=== PATIENT | female | born 1970 | race African-American/Black ===

== ENCOUNTER → 2020-11-19 | Outpatient (CLI) | payer OTHER ==
[2020-11-19 09:06] LABS: Basophils # (auto) 0 10 ^3/uL (0-0.2); Basophils % (auto) 0.9 % (0.0-2.0); Eosinophils # (auto) 0.1 10 ^3/uL (0-0.8); Eosinophils % (auto) 1.9 % (0.0-7.0); Hematocrit 38.8 % (36.0-46.0); Hemoglobin 13.3 g/dL (12.2-16.2); Lymphocytes # (auto) 1.5 10 ^3/uL (0.4-5.4); Lymphocytes % (auto) 34.8 % (10.0-50.0); Mean Corpuscular Hgb Conc. 34.2 g/dL (32.0-36.0); Mean Corpuscular Volume 93.6 fL (80.0-100.0); Monocytes # (auto) 0.3 10 ^3/uL (0-1.3); Monocytes % (auto) 7.6 % (0.0-12.0); Neutrophils # (auto) 2.3 10 ^3/uL (1.6-8.6); Neutrophils % (auto) 54.8 % (37.0-80.0); Nucleated Red Blood Cells % 0.2 %; Platelet Count (auto) 266 10^3/uL (140-450); Red Blood Cells 4.15 10^6/uL (4.0-5.20); Red Cell Distribution Width 14.2 % (11.8-14.3); White Blood Cell 4.2 10^3/uL (4.4-10.8)
[2020-11-19 09:11] LABS: Urine Bacteria NONE SEEN /hpf (None Seen); Urine Blood Negative /uL (Negative); Urine Specific Gravity 1.013 (1.001-1.035); Urine WBC <1 /hpf (0 - 5)
[2020-11-19 10:03] LABS: Albumin 3.8 g/dL (3.4-5.0); Calcium 9.7 mg/dL (8.5-10.1); Potassium 3.4 mmol/L (3.5-5.1)
[2020-11-19 11:55] LABS: BUN/Creatinine Ratio 12.9; Bilirubin, Total 0.6 mg/dL (0.2-1.0); Total Protein 7.5 g/dL (6.4-8.2)
== END | disposition home or self-care (01) ==
LOC: LAB 08:34
PROVIDERS: ATTEND Internal Medicine
DX: I10 Essential (primary) hypertension (principal)
CPT/HCPCS: 36415; 80053; 80061; 81001; 82306; 83036; 84443; 85025

== ENCOUNTER → 2021-01-08 | Outpatient (CLI) | payer OTHER ==
[2021-01-08 12:27] LABS: Potassium 3.9 mmol/L (3.5-5.1)
[2021-01-08 12:29] LABS: BUN/Creatinine Ratio 15.8
== END | disposition home or self-care (01) ==
LOC: LAB 11:17
PROVIDERS: ATTEND Internal Medicine
DX: I10 Essential (primary) hypertension (principal)
CPT/HCPCS: 36415; 80048

== ENCOUNTER → 2021-03-13 | Outpatient (CLI) | payer OTHER ==
[2021-03-13 16:27] LABS: Albumin 3.8 g/dL (3.4-5.0); Calcium 8.7 mg/dL (8.5-10.1); Potassium 3.6 mmol/L (3.5-5.1)
[2021-03-13 16:30] LABS: BUN/Creatinine Ratio 15.4; Bilirubin, Total 0.6 mg/dL (0.2-1.0); Total Protein 7.4 g/dL (6.4-8.2)
== END | disposition home or self-care (01) ==
LOC: LAB 14:01
PROVIDERS: ATTEND Internal Medicine
DX: I10 Essential (primary) hypertension (principal)
CPT/HCPCS: 36415; 80053

== ENCOUNTER → 2021-03-25 | Outpatient (CLI) | payer OTHER ==
[2021-03-25 09:18] LABS: Urine Bacteria NONE SEEN /hpf (None Seen); Urine Blood Negative /uL (Negative); Urine Specific Gravity 1.014 (1.001-1.035); Urine WBC <1 /hpf (0 - 5)
== END | disposition home or self-care (01) ==
LOC: LAB 08:55
PROVIDERS: ATTEND Internal Medicine
DX: N39.0 Urinary tract infection, site not specified (principal)
CPT/HCPCS: 81001

== ENCOUNTER 2021-09-17 15:41 | Emergency (ER) | payer OTHER ==
[~2021-09-17] VITALS: Ht 170.2 cm; Wt 77.1 kg
[2021-09-17] MEDS ORDERED: ASPirin 81 mg TAB PO ONE (16:15)
[2021-09-17] MEDS ORDERED: SODIUM CHLORIDE 0.9% 1,000 ML IV ONE (16:15)
[2021-09-17 16:39] LABS: Urine Bacteria NONE SEEN /hpf (None Seen); Urine Blood Negative /uL (Negative); Urine Hyaline Cast FEW /lpf (0 - 2); Urine Specific Gravity 1.018 (1.001-1.035); Urine WBC 2 /hpf (0 - 5)
[2021-09-17 16:46] LABS: Amphetamine Screen, Urine NEGATIVE (NEGATIVE); Barbiturate Scree,Urine NEGATIVE (NEGATIVE); Benzodiazephine Screen, Urine NEGATIVE (NEGATIVE); Cannabinoid Screen, Urine NEGATIVE (NEGATIVE); Cocaine Screen, Urine NEGATIVE (NEGATIVE); Opiate Scree,Urine POSITIVE (NEGATIVE); Phencyclidine Screen, Urine NEGATIVE (NEGATIVE)
[2021-09-17 17:00] LABS: Basophils # (auto) 0.1 10 ^3/uL (0-0.2); Basophils % (auto) 2.1 % (0.0-2.0); Eosinophils # (auto) 0.1 10 ^3/uL (0-0.8); Eosinophils % (auto) 2.6 % (0.0-7.0); Hematocrit 42.8 % (36.0-46.0); Hemoglobin 14.3 g/dL (12.2-16.2); Lymphocytes # (auto) 1.4 10 ^3/uL (0.4-5.4); Lymphocytes % (auto) 32.1 % (10.0-50.0); Mean Corpuscular Hemoglobin 30.8 pg (28.0-32.0); Mean Corpuscular Hgb Conc. 33.4 g/dL (32.0-36.0); Monocytes # (auto) 0.4 10 ^3/uL (0-1.3); Monocytes % (auto) 9.7 % (0.0-12.0); Neutrophils # (auto) 2.3 10 ^3/uL (1.6-8.6); Neutrophils % (auto) 53.5 % (37.0-80.0); Nucleated Red Blood Cells % 0.1 %; Red Blood Cells 4.65 10^6/uL (4.0-5.20); Red Cell Distribution Width 14.3 % (11.8-14.3); White Blood Cell 4.3 10^3/uL (4.4-10.8)
[2021-09-17 17:19] LABS: Potassium 3.5 mmol/L (3.5-5.1)
[2021-09-17 17:27] LABS: Albumin 3.9 g/dL (3.4-5.0); BUN/Creatinine Ratio 16.3; Bilirubin, Total 0.6 mg/dL (0.2-1.0); Calcium 9.5 mg/dL (8.5-10.1); Total Protein 8.2 g/dL (6.4-8.2)
[2021-09-17] MEDS ORDERED: cefTRIAXone 1GM/50ML D5W 50 ML IV ONE (17:30)
[2021-09-17] MEDS ORDERED: AZITHROMYCIN 500MG/ 250ML 250 ML IV ONE (17:30)
[2021-09-17] MEDS ORDERED: HYDROcodone-ACET 10/325MG TAB PO ONE (20:30)
[2021-09-17 23:17] VITALS: BP 147/64
[2021-09-18] MEDS ORDERED: CEFD300C2 PO (01:23)
== END 2021-09-18 01:53 | disposition home or self-care (01) ==
LOC: ER 15:41
DX: J18.9 Pneumonia, unspecified organism (principal); R07.89 Other chest pain; I10 Essential (primary) hypertension; G89.4 Chronic pain syndrome; Z20.822 Contact with and (suspected) exposure to COVID-19
CPT/HCPCS: 36415; 71046; 80053; 80307; 81001; 83735; 84443; 84484; 85025; 85379; 87426; 93005; 93971; 96361; 96365; 96366; 96368; 99285; J0456; J0696; J7030

== ENCOUNTER → 2021-09-19 | Outpatient (CLI) | payer OTHER ==
[~2021-09-19] MED LIST: CEFD300C2 PO
== END | disposition home or self-care (01) ==
LOC: LAB 14:23
PROVIDERS: ATTEND Nurse Practitioner Family
DX: N39.0 Urinary tract infection, site not specified (principal)
CPT/HCPCS: 87086

== ENCOUNTER → 2021-09-25 | Outpatient (CLI) | payer OTHER ==
[2021-09-25 11:03] LABS: BUN/Creatinine Ratio 14.5; Blood Urea Nitrogen 12 mg/dL (7-18); Carbon Dioxide 30 mmol/L (21-32); GFR African American 93 mL/min; GFR Non-African American 77 mL/min; Glucose 94 mg/dL (74-106)
[2021-09-25 13:40] LABS: Potassium 3.2 mmol/L (3.5-5.1); Sodium 140 mmol/L (136-145)
[2021-09-25 13:41] LABS: Anion Gap 3 (5-15); Chloride 107 mmol/L (98-107)
== END | disposition home or self-care (01) ==
LOC: LAB 09:50
PROVIDERS: ATTEND Internal Medicine
DX: I10 Essential (primary) hypertension (principal)
CPT/HCPCS: 36415; 80048; 83036

== ENCOUNTER → 2021-10-16 | Outpatient (CLI) | payer OTHER ==
[2021-10-16 15:03] LABS: Urine Bacteria NONE SEEN /hpf (None Seen); Urine Blood Negative /uL (Negative); Urine Mucus FEW (None Seen); Urine Specific Gravity 1.016 (1.001-1.035); Urine WBC 1 /hpf (0 - 5)
== END | disposition home or self-care (01) ==
LOC: LAB 14:38
PROVIDERS: ATTEND Internal Medicine
DX: N39.0 Urinary tract infection, site not specified (principal); I10 Essential (primary) hypertension
CPT/HCPCS: 81001; 87086

== ENCOUNTER → 2022-02-20 | Outpatient (CLI) | payer OTHER ==
[2022-02-20 13:57] LABS: Urine Bacteria NONE SEEN /hpf (None Seen); Urine Blood Negative /uL (Negative); Urine Specific Gravity 1.013 (1.001-1.035); Urine WBC 1 /hpf (0 - 5)
== END | disposition home or self-care (01) ==
LOC: LAB 13:37
PROVIDERS: ATTEND Internal Medicine
DX: R30.0 Dysuria (principal)
CPT/HCPCS: 81001; 87086

== ENCOUNTER → 2022-05-21 | Outpatient (CLI) | payer OTHER ==
[2022-05-21 10:55] LABS: Basophils # (auto) 0 10 ^3/uL (0-0.2); Eosinophils # (auto) 0.1 10 ^3/uL (0-0.8); Eosinophils % (auto) 2.2 % (0.0-7.0); Hematocrit 38.3 % (36.0-46.0); Hemoglobin 12.6 g/dL (12.2-16.2); Lymphocytes # (auto) 1.3 10 ^3/uL (0.4-5.4); Mean Corpuscular Hemoglobin 29.7 pg (28.0-32.0); Mean Corpuscular Hgb Conc. 32.8 g/dL (32.0-36.0); Mean Corpuscular Volume 90.6 fL (80.0-100.0); Monocytes # (auto) 0.3 10 ^3/uL (0-1.3); Monocytes % (auto) 8.3 % (0.0-12.0); Neutrophils # (auto) 1.8 10 ^3/uL (1.6-8.6); Neutrophils % (auto) 50.5 % (37.0-80.0); Nucleated Red Blood Cells % 0.1 %; Red Blood Cells 4.23 10^6/uL (4.0-5.20); Red Cell Distribution Width 15.3 % (11.8-14.3); White Blood Cell 3.5 10^3/uL (4.4-10.8)
[2022-05-21 11:17] LABS: Urine Bacteria NONE SEEN /hpf (None Seen); Urine Blood Negative /uL (Negative); Urine Specific Gravity 1.018 (1.001-1.035); Urine WBC 2 /hpf (0 - 5)
[2022-05-21 11:18] LABS: Albumin 3.8 g/dL (3.4-5.0); Calcium 9.2 mg/dL (8.5-10.1); Potassium 4.2 mmol/L (3.5-5.1)
[2022-05-21 11:23] LABS: BUN/Creatinine Ratio 14.3; Bilirubin, Total 0.5 mg/dL (0.2-1.0); Total Protein 7.2 g/dL (6.4-8.2)
== END | disposition home or self-care (01) ==
LOC: LAB 10:17
PROVIDERS: ATTEND Internal Medicine
DX: I10 Essential (primary) hypertension (principal); R13.0 Aphagia
CPT/HCPCS: 36415; 80053; 80061; 81001; 82306; 83036; 84439; 84443; 85025

== ENCOUNTER → 2022-06-03 | Outpatient (CLI) | payer OTHER | END | disposition home or self-care (01) | LOC: LAB 14:36 | PROVIDERS: ATTEND Internal Medicine | DX: I10 Essential (primary) hypertension (principal); R73.9 Hyperglycemia, unspecified | CPT/HCPCS: 82274 ==

== ENCOUNTER → 2022-09-29 | Outpatient (CLI) | payer OTHER ==
[2022-09-29 09:43] LABS: Basophils % (manual) 0 (0.0-2.0); Blast Cells 0; Myelocytes % 0; Promyelocytes % 0
[2022-09-29 09:52] LABS: Basophils # (auto) 0 10 ^3/uL (0-0.2); Eosinophils # (auto) 0.1 10 ^3/uL (0-0.8); Eosinophils % (auto) 1.6 % (0.0-7.0); Hematocrit 37.3 % (36.0-46.0); Hemoglobin 12.4 g/dL (12.2-16.2); Lymphocytes # (auto) 1.9 10 ^3/uL (0.4-5.4); Mean Corpuscular Hemoglobin 31.3 pg (28.0-32.0); Mean Corpuscular Hgb Conc. 33.2 g/dL (32.0-36.0); Mean Corpuscular Volume 94.5 fL (80.0-100.0); Monocytes # (auto) 0.4 10 ^3/uL (0-1.3); Neutrophils # (auto) 2.3 10 ^3/uL (1.6-8.6); Neutrophils % (auto) 48.4 % (37.0-80.0); Red Blood Cells 3.94 10^6/uL (4.0-5.20); White Blood Cell 4.8 10^3/uL (4.4-10.8)
[2022-09-29 10:01] LABS: Urine Bacteria NONE SEEN /hpf (None Seen); Urine Blood Negative /uL (Negative); Urine Specific Gravity 1.012 (1.001-1.035); Urine WBC 2 /hpf (0 - 5)
[2022-09-29 10:43] LABS: Calcium 9.1 mg/dL (8.5-10.1)
[2022-09-29 10:49] LABS: Albumin 3.6 g/dL (3.4-5.0); BUN/Creatinine Ratio 15.9; Bilirubin, Total 0.6 mg/dL (0.2-1.0); Total Protein 7.3 g/dL (6.4-8.2)
[2022-09-29 11:22] LABS: Potassium 2.9 mmol/L (3.5-5.1)
[2022-09-29 11:50] LABS: Band Neutrophils % (manual) 4; Eosinophils % (manual) 4 (0-7); Lymphocytes % (manual) 35 (10.0-50.0); Metamyelocytes % 2; Monocytes % (manual) 10 (0-12); Reactive Lymphocytes 8
== END | disposition home or self-care (01) ==
LOC: LAB 09:20
PROVIDERS: ATTEND Internal Medicine
DX: D86.0 Sarcoidosis of lung (principal)
CPT/HCPCS: 36415; 80053; 81001; 82274; 82306; 82378; 82607; 83036; 85025; 87086

== ENCOUNTER → 2022-10-02 | Outpatient (CLI) | payer OTHER ==
[2022-10-02 09:59] LABS: BUN/Creatinine Ratio 12.9; Potassium 3.4 mmol/L (3.5-5.1)
== END | disposition home or self-care (01) ==
LOC: LAB 09:09
PROVIDERS: ATTEND Internal Medicine
DX: E11.9 Type 2 diabetes mellitus without complications (principal)
CPT/HCPCS: 36415; 80048

== ENCOUNTER 2022-11-09 11:00 | Outpatient (CLI) | payer OTHER ==
[~2022-11-09] VITALS: Ht 170.2 cm; Wt 81.6 kg
[2022-11-09] MEDS ORDERED: GABA300C10 PO (11:12)
[2022-11-09] MEDS ORDERED: HYDR-4902 PO (11:12)
[2022-11-09] MEDS ORDERED: METO-158 PO (11:12)
[2022-11-09] MEDS ORDERED: CHOLCAP10 PO (11:12)
[2022-11-09 11:52] LABS: Urine Bacteria NONE SEEN /hpf (None Seen); Urine Blood Negative /uL (Negative); Urine Specific Gravity 1.012 (1.001-1.035); Urine WBC 1 /hpf (0 - 5)
[2022-11-09 11:54] LABS: INR 0.97 (0.9-1.15); Partial Thromboplastin Time 29.9 sec (24.6-33.4)
[2022-11-09 12:10] LABS: Basophils # (auto) 0 10 ^3/uL (0-0.2); Basophils % (auto) 1.2 % (0.0-2.0); Calcium 9.4 mg/dL (8.5-10.1); Eosinophils # (auto) 0.1 10 ^3/uL (0-0.8); Eosinophils % (auto) 1.7 % (0.0-7.0); Hematocrit 39.3 % (36.0-46.0); Lymphocytes # (auto) 1.3 10 ^3/uL (0.4-5.4); Lymphocytes % (auto) 34.5 % (10.0-50.0); Mean Corpuscular Hemoglobin 31.3 pg (28.0-32.0); Mean Corpuscular Hgb Conc. 33.1 g/dL (32.0-36.0); Mean Corpuscular Volume 94.6 fL (80.0-100.0); Monocytes # (auto) 0.3 10 ^3/uL (0-1.3); Monocytes % (auto) 8.5 % (0.0-12.0); Neutrophils # (auto) 2.1 10 ^3/uL (1.6-8.6); Neutrophils % (auto) 54.1 % (37.0-80.0); Nucleated Red Blood Cells % 0.1 %; Potassium 3.7 mmol/L (3.5-5.1); Red Blood Cells 4.15 10^6/uL (4.0-5.20); Red Cell Distribution Width 14.7 % (11.8-14.3); White Blood Cell 3.9 10^3/uL (4.4-10.8)
[2022-11-09 12:14] LABS: BUN/Creatinine Ratio 12.4 (10.0-20.0); Bilirubin, Total 0.6 mg/dL (0.2-1.0); Total Protein 7.8 g/dL (6.4-8.2)
== END 2022-11-09 12:28 | disposition home or self-care (01) ==
LOC: LAB 11:00 → EDSTATUS 11-11 12:15
PROVIDERS: ATTEND Podiatrist
DX: Z01.812 Encounter for preprocedural laboratory examination (principal); S92.351A Displaced fracture of fifth metatarsal bone, right foot, initial encounter for closed fracture; Z20.822 Contact with and (suspected) exposure to COVID-19; X58.XXXA Exposure to other specified factors, initial encounter; Y93.89 Activity, other specified; Y92.89 Other specified places as the place of occurrence of the external cause; Y99.8 Other external cause status
CPT/HCPCS: 36415; 80053; 81001; 85025; 85610; 85730; U0003

== ENCOUNTER 2023-01-07 08:53 | Emergency (ER) | payer OTHER ==
[~2023-01-07] VITALS: Ht 170.2 cm; Wt 83.4 kg
[~2023-01-07 08:53] MED LIST changes: -CEFD300C2 PO; +CHOLCAP10 PO; +GABA300C10 PO; +HYDR-4902 PO; +METO-158 PO
[2023-01-07 09:14] VITALS: BP 168/92
[2023-01-07] MEDS ORDERED: KETOROLAC TROMETH 60MG/2ML VIAL IM ONE (10:00)
[2023-01-07] MEDS ORDERED: METH750T22 PO (10:04)
[2023-01-07] MEDS ORDERED: PRED20TA2 PO (10:04)
== END 2023-01-07 12:18 | disposition home or self-care (01) ==
LOC: ER 08:53
DX: M75.31 Calcific tendinitis of right shoulder (principal); M19.011 Primary osteoarthritis, right shoulder
CPT/HCPCS: 73030; 73221; 96372; 99285; J1885

== ENCOUNTER → 2023-02-24 | Outpatient (CLI) | payer OTHER ==
[~2023-02-24] MED LIST changes: +GABA-1250 PO; -GABA300C10 PO; +METH-1182 PO; +PRED20TA2 PO
[2023-02-24 09:36] LABS: Urine Bacteria NONE SEEN /hpf (None Seen); Urine Blood Negative /uL (Negative); Urine Specific Gravity 1.016 (1.001-1.035); Urine WBC 30 /hpf (0 - 5)
== END | disposition home or self-care (01) ==
LOC: LAB 09:02
PROVIDERS: ATTEND Internal Medicine
DX: E11.22 Type 2 diabetes mellitus with diabetic chronic kidney disease (principal); N18.9 Chronic kidney disease, unspecified
CPT/HCPCS: 36415; 81001; 82043; 83036

== ENCOUNTER → 2023-07-28 | Outpatient (CLI) | payer OTHER ==
[2023-07-29 07:07] LABS: Mumps IgG Antibody <9.0 AU/mL (Immune >10.9); Varicella Zoster IgG Antibody 1018 index (Immune >165)
== END | disposition home or self-care (01) ==
LOC: LAB 11:02
PROVIDERS: ATTEND Internal Medicine
DX: Z01.84 Encounter for antibody response examination (principal)
CPT/HCPCS: 86735; 86762; 86765; 86787

== ENCOUNTER → 2023-09-07 | Outpatient (CLI) | payer OTHER ==
[2023-09-07 11:33] LABS: Basophils # (auto) 0 10 ^3/uL (0-0.2); Eosinophils # (auto) 0.1 10 ^3/uL (0-0.8); Eosinophils % (auto) 1.7 % (0.0-7.0); Hematocrit 40.4 % (36.0-46.0); Hemoglobin 13.4 g/dL (12.2-16.2); Lymphocytes # (auto) 1.7 10 ^3/uL (0.4-5.4); Lymphocytes % (auto) 40.3 % (10.0-50.0); Mean Corpuscular Hemoglobin 31.4 pg (28.0-32.0); Mean Corpuscular Hgb Conc. 33.3 g/dL (32.0-36.0); Mean Corpuscular Volume 94.3 fL (80.0-100.0); Monocytes # (auto) 0.3 10 ^3/uL (0-1.3); Monocytes % (auto) 7.7 % (0.0-12.0); Neutrophils % (auto) 49.3 % (37.0-80.0); Red Blood Cells 4.28 10^6/uL (4.0-5.20); Red Cell Distribution Width 14.9 % (11.8-14.3); White Blood Cell 4.1 10^3/uL (4.4-10.8)
[2023-09-07 12:32] LABS: Alanine Aminotransferase 42 U/L (7-40); Alkaline Phosphatase 68 U/L (46-116); Anion Gap 6 (5-15); BUN/Creatinine Ratio 8.1 (10.0-20.0); Blood Urea Nitrogen 8 mg/dL (9-23); Calcium 10.1 mg/dL (8.5-10.1); Carbon Dioxide 33 mmol/L (20-30); Chloride 103 mmol/L (98-107); Glucose 105 mg/dL (74-106); Potassium 2.7 mmol/L (3.5-5.1); Sodium 142 mmol/L (136-145)
[2023-09-07 12:34] LABS: Albumin 4.8 g/dL (3.2-4.8); Aspartate Aminotransferase 37 U/L (13-40); Bilirubin, Total 0.7 mg/dL (0.2-1.0); Total Protein 7.7 g/dL (5.7-8.2)
[2023-09-08 12:06] LABS: Cancer Antigen (CA) 125 19.3 U/mL (0.0-38.1); Cancer Antigen (CA) 15-3 9.8 U/mL (0.0-25.0)
[2023-09-08 13:06] LABS: CA 27.29 13.1 U/mL (0.0-38.6); Carbohydrate Antigen 19-9 <2 U/mL (0-35)
== END | disposition home or self-care (01) ==
LOC: LAB 10:36
PROVIDERS: ATTEND Internal Medicine
DX: R97.0 Elevated carcinoembryonic antigen [CEA] (principal); R97.8 Other abnormal tumor markers; R79.9 Abnormal finding of blood chemistry, unspecified
CPT/HCPCS: 36415; 80053; 82378; 83036; 84443; 85025; 86300; 86301; 86304

== ENCOUNTER → 2023-09-24 | Outpatient (CLI) | payer OTHER ==
[2023-09-24 08:30] LABS: Urine Bacteria NONE SEEN /hpf (None Seen); Urine Blood Negative /uL (Negative); Urine Clarity Clear (Clear); Urine Color Colorless (Yellow); Urine Protein, UAD Negative (Negative); Urine Specific Gravity 1.011 (1.001-1.035); Urine Urobilinogen Normal (Negative); Urine WBC 1 /hpf (0 - 5); Urine pH 7.5 (5.0-8.0)
[2023-09-24 08:52] LABS: Anion Gap 5 (5-15); Carbon Dioxide 32 mmol/L (20-30); Chloride 105 mmol/L (98-107); Potassium 3.1 mmol/L (3.5-5.1); Sodium 142 mmol/L (136-145)
[2023-09-24 08:53] LABS: Calcium 9.6 mg/dL (8.7-10.4)
[2023-09-24 08:58] LABS: BUN/Creatinine Ratio 14.3 (10.0-20.0); Blood Urea Nitrogen 13 mg/dL (9-23); Glucose 97 mg/dL (74-106)
== END | disposition home or self-care (01) ==
LOC: LAB 08:10
PROVIDERS: ATTEND Internal Medicine
DX: I10 Essential (primary) hypertension (principal); N39.0 Urinary tract infection, site not specified
CPT/HCPCS: 36415; 80048; 81001; 83735; 87086

== ENCOUNTER → 2023-10-29 | Outpatient (CLI) | payer OTHER ==
[2023-10-29 08:10] LABS: Anion Gap 5 (5-15); Carbon Dioxide 34 mmol/L (20-30); Chloride 103 mmol/L (98-107); Potassium 3.2 mmol/L (3.5-5.1); Sodium 142 mmol/L (136-145)
[2023-10-29 08:15] LABS: Glucose 104 mg/dL (74-106)
[2023-10-29 08:16] LABS: BUN/Creatinine Ratio 20.4 (10.0-20.0); Blood Urea Nitrogen 19 mg/dL (9-23); LDL Cholesterol 170 mg/dL (< 100); Triglycerides 104 mg/dL (< 150)
[2023-10-29 08:18] LABS: Cholesterol 226 mg/dL (< 200); HDL Cholesterol 43 mg/dL (40-59)
== END | disposition home or self-care (01) ==
LOC: LAB 07:43
PROVIDERS: ATTEND Internal Medicine
DX: I10 Essential (primary) hypertension (principal)
CPT/HCPCS: 36415; 80048; 80061

== ENCOUNTER → 2023-12-24 | Outpatient (CLI) | payer OTHER ==
[2023-12-24 08:43] LABS: Urine Bacteria None Seen /hpf (None Seen)
[2023-12-24 08:55] LABS: Basophils # (auto) 0 10 ^3/uL (0-0.2); Basophils % (auto) 1.3 % (0.0-2.0); Eosinophils # (auto) 0.1 10 ^3/uL (0-0.8); Eosinophils % (auto) 2.1 % (0.0-7.0); Hematocrit 40.7 % (36.0-46.0); Hemoglobin 13.4 g/dL (12.2-16.2); Lymphocytes # (auto) 1.4 10 ^3/uL (0.4-5.4); Lymphocytes % (auto) 37.6 % (10.0-50.0); Mean Corpuscular Hemoglobin 30.7 pg (28.0-32.0); Mean Corpuscular Hgb Conc. 32.9 g/dL (32.0-36.0); Mean Corpuscular Volume 93.3 fL (80.0-100.0); Monocytes # (auto) 0.3 10 ^3/uL (0-1.3); Monocytes % (auto) 8.1 % (0.0-12.0); Neutrophils # (auto) 1.8 10 ^3/uL (1.6-8.6); Neutrophils % (auto) 50.9 % (37.0-80.0); Nucleated Red Blood Cells % 0.1 %; Red Blood Cells 4.36 10^6/uL (4.0-5.20); Red Cell Distribution Width 14.7 % (11.8-14.3); White Blood Cell 3.6 10^3/uL (4.4-10.8)
[2023-12-24 08:57] LABS: Urine Blood Negative /uL (Negative); Urine Clarity Clear (Clear); Urine Color Light-Yellow (Yellow); Urine Protein, UAD Negative (Negative); Urine Specific Gravity 1.012 (1.001-1.035); Urine Urobilinogen Normal (Negative); Urine WBC 2 /hpf (0 - 5); Urine pH 5.5 (5.0-9.0)
[2023-12-24 09:14] LABS: Alanine Aminotransferase 19 U/L (7-40); Alkaline Phosphatase 63 U/L (46-116); Anion Gap 8 (5-15); BUN/Creatinine Ratio 10.9 (10.0-20.0); Blood Urea Nitrogen 11 mg/dL (9-23); Calcium 10.2 mg/dL (8.5-10.1); Carbon Dioxide 30 mmol/L (20-30); Chloride 107 mmol/L (98-107); Glucose 105 mg/dL (74-106); Potassium 3.4 mmol/L (3.5-5.1); Sodium 145 mmol/L (136-145)
[2023-12-24 09:15] LABS: Albumin 4.7 g/dL (3.2-4.8); Aspartate Aminotransferase 19 U/L (13-40); Bilirubin, Total 0.8 mg/dL (0.2-1.0); Total Protein 7.4 g/dL (5.7-8.2)
[2023-12-24 09:17] LABS: Free T4 (Free Thyroxine) 1.04 ng/dL (0.89-1.76)
== END | disposition home or self-care (01) ==
LOC: LAB 08:30
PROVIDERS: ATTEND Internal Medicine
DX: I10 Essential (primary) hypertension (principal); E87.6 Hypokalemia; R73.03 Prediabetes
CPT/HCPCS: 36415; 80053; 81001; 82306; 82607; 83036; 84439; 84443; 85025

== ENCOUNTER → 2024-06-06 | Outpatient (CLI) | payer OTHER ==
[2024-06-06 09:14] LABS: Urine Bacteria FEW /hpf (None Seen); Urine Blood Negative /uL (Negative); Urine Clarity Clear (Clear); Urine Color Light-Yellow (Yellow); Urine Protein, UAD Negative (Negative); Urine Specific Gravity 1.012 (1.001-1.035); Urine Urobilinogen Normal (Negative); Urine WBC 8 /hpf (0 - 5); Urine pH 7.5 (5.0-9.0)
[2024-06-06 09:23] LABS: Triglycerides 111 mg/dL (< 150)
[2024-06-06 09:24] LABS: Cholesterol 240 mg/dL (< 200); LDL Cholesterol 178 mg/dL (< 100)
[2024-06-06 09:25] LABS: HDL Cholesterol 45 mg/dL (40-59)
== END | disposition home or self-care (01) ==
LOC: LAB 08:24
PROVIDERS: ATTEND Internal Medicine
DX: I10 Essential (primary) hypertension (principal); E78.5 Hyperlipidemia, unspecified
CPT/HCPCS: 36415; 80061; 81001

== ENCOUNTER → 2024-07-04 | Outpatient (CLI) | payer OTHER ==
[2024-07-04 09:45] LABS: Urine Bacteria None Seen /hpf (None Seen)
[2024-07-04 10:04] LABS: Basophils # (auto) 0 10 ^3/uL (0-0.2); Basophils % (auto) 0.5 % (0.0-2.0); Eosinophils # (auto) 0 10 ^3/uL (0-0.8); Eosinophils % (auto) 0.3 % (0.0-7.0); Hematocrit 39.4 % (36.0-46.0); Hemoglobin 13.4 g/dL (12.2-16.2); Lymphocytes % (auto) 32.4 % (10.0-50.0); Mean Corpuscular Volume 94.2 fL (80.0-100.0); Monocytes # (auto) 0.5 10 ^3/uL (0-1.3); Neutrophils # (auto) 3.7 10 ^3/uL (1.6-8.6); Neutrophils % (auto) 58.8 % (37.0-80.0); Nucleated Red Blood Cells % 0.1 %; Platelet Count (auto) 207 10^3/uL (140-450); Red Blood Cells 4.18 10^6/uL (4.0-5.20); Red Cell Distribution Width 14.7 % (11.8-14.3); White Blood Cell 6.2 10^3/uL (4.4-10.8)
[2024-07-04 10:13] LABS: Urine Blood Negative /uL (Negative); Urine Clarity Turbid (Clear); Urine Color Light-Yellow (Yellow); Urine Protein, UAD Negative (Negative); Urine Specific Gravity 1.013 (1.001-1.035); Urine Urobilinogen Normal (Negative); Urine WBC 2 /hpf (0 - 5); Urine pH 6.5 (5.0-9.0)
[2024-07-04 10:24] LABS: Alanine Aminotransferase 25 U/L (7-40); Albumin 4.8 g/dL (3.2-4.8); Alkaline Phosphatase 69 U/L (46-116); Anion Gap 9 (5-15); Blood Urea Nitrogen 9 mg/dL (9-23); Calcium 10.8 mg/dL (8.7-10.4); Carbon Dioxide 31 mmol/L (20-31); Chloride 104 mmol/L (98-107); Glucose 103 mg/dL (74-106); Potassium 2.8 mmol/L (3.5-5.1); Sodium 144 mmol/L (136-145)
[2024-07-04 10:25] LABS: Aspartate Aminotransferase 10 U/L (13-40)
[2024-07-04 10:26] LABS: Total Protein 7.8 g/dL (5.7-8.2)
== END | disposition home or self-care (01) ==
LOC: LAB 09:21
PROVIDERS: ATTEND Internal Medicine
DX: E55.9 Vitamin D deficiency, unspecified (principal); Z80.9 Family history of malignant neoplasm, unspecified
CPT/HCPCS: 36415; 80053; 81001; 82306; 83036; 85025; 86304

== ENCOUNTER 2024-08-10 05:22 | Inpatient (IN) | payer OTHER ==
[~2024-08-10] VITALS: Ht 170.2 cm; Wt 77.7 kg
--- NOTE | 2024-08-10 06:58 | ED.PDOC ---
Back pain HPI HPI Comments A 54 YEAR OLD FEMALE PRESENTS TO THE ED WITH COMPLAINT OF LEFT RIB PAIN. PATIENT STATES SHE HAS BEEN EXPERIENCING LEFT-SIDED RIB PAIN OFF AND ON FOR THE PAST 2 WEEKS. THE PATIENT NOTES HER PAIN IS WORSE WITH MOVEMENT AND STATES SHE WAS ALSO HAD A.M. COUGH AND CONGESTION FOR THE PAST 2 WEEKS. MOVEMENT AND COUGH INCREASES LEFT SIDE RIBS PAIN. PATIENT DENIES DYSURIA, HEMATURIA, FEVER, CHILLS, SHORTNESS OF BREATH, CHEST PAIN, ABDOMINAL PAIN, NAUSEA, VOMITING, HEADACHE, OR OTHER COMPLAINTS. NO OTHER SYMPTOMS OR MODIFYING FACTORS AT THIS TIME. PATIENT IS ALERT, ORIENTED X 4, AND HAS STEADY GAIT. Chief Complaint: Rib Pain Time Seen by MD: 06:24 Primary Care Provider: COLBY Weir Notes: Nurses Notes, Medications, Allergies Allergies: Coded Allergies: NO KNOWN ALLERGIES (Unverified , 09/17/21) Home Meds Active Scripts Methocarbamol (Methocarbamol) 750 Mg Tab, 750 MG PO QHSP PRN, #20 TAB Prov:SHAHRZAD PEREIRA 01/07/23 Prednisone (Prednisone) 20 Mg Tab, 40 MG PO DAILY, #20 MG Prov:SHAHRZAD PEREIRA 01/07/23 Reported Medications Metoprolol Tartrate (Metoprolol Tartrate) 50 Mg Tab, 50 MG PO for 30 Days, MG 11/09/22 Cholecalciferol (D2000 Ultra Strength) 2,000 Unit Cap, 80141 UNIT PO 2XW, CAP 11/09/22 Hydrocodone-Acetaminophen (Hydrocodone Bitartrate/AC 5-325 mg) 1 Tab Tab, 1 TAB PO, TAB 11/09/22 Gabapentin (Gabapentin) 300 Mg Cap, 300 MG PO DAILY for 30 Days, MG 11/09/22 Information Source: Patient Mode of Arrival: Ambulatory Timing: Weeks Duration: Intermittent Location of Back pain: Other (LEFT-SIDED RIB PAIN) Severity: Moderate Quality: Aching, Cramping Onset: Spontaneous History of: Chronic Back Pain Modifying Factors: Movement, Breathing (AND SNEEZING ) Associated signs and symptoms: None Past Medical History PAST MEDICAL HISTORY: HTN Past Medical History (Other): SARCOIDOSIS, CHRONIC BACK PAIN Surgical History: Denies all surgeries ASSISTANT BUSINESS MANAGER History: No Pertinent ASSISTANT BUSINESS MANAGER History Family History Family History: Reviewed,noncontributory to illness, No family hx of Cancer, No family hx of DM, No family hx of Heart madeline, No family hx of HTN, No family hx ofKidney madeline, No family hx of Liver madeline, No family hx of Lung madeline, No family hx of Stroke Social History Smoker: Non-Smoker Alcohol: Occasionally Drugs: Denies Drug Use Lives In: Home Constitutional: denies: chills, diaphoresis, fatigue, fever, malaise, sweats, weakness, others EENTM: denies: blurred vision, double vision, ear bleeding, ear discharge, ear drainage, ear pain, ear ringing, eye pain, eye redness, hearing loss, mouth pain, mouth swelling, nasal discharge, nose bleeding, nose congestion, nose pain, photophobia, tearing, throat pain, throat swelling, voice changes, others Respiratory: reports: cough; denies: hemoptysis, orthopnea, SOB at rest, shortness of breath, SOB with excertion, stridor, wheezing, others Cardiovascular: denies: chest pain, dizzy spells, diaphoresis, Dyspnea on exertion, edema, irregular heart beat, left arm pain, lightheadedness, palpitations, PND, syncope, others Gastrointestinal: denies: abdomen distended, abdominal pain, blood streaked bowels, constipated, diarrhea, dysphagia, difficulty swallowing, hematemesis, melena, nausea, poor appetite, poor fluid intake, rectal bleeding, rectal pain, vomiting, others Genitourinary: denies: abnormal vagina bleeding, burning, dyspareunia, dysuria, flank pain, frequency, hematuria, incontinence, pain, , vagina discharge , urgency, others Neurological: denies: dizziness, fainting, headache, left sided numbness, left sided weakness, numbness, paresthesia, pre-existing deficit, right sided numbness, right sided weakness, seizure, speech problems, tingling, tremors, weakness, others Musculoskeletal: reports: muscle pain (LEFT SIDE RIBS ), others (LEFT-SIDED RIB PAIN); denies: back pain, gout, joint pain, joint swelling, muscle stiffness, neck pain Integumetry: denies: bruises, change in color, change in hair/nails, dryness, laceration, lesions, lumps, rash, wounds, others Allergic/Immunocompromised: denies: Difficulty Healing, Frequent Infections, Hi ves, Itching, others Hematologic/Lymphatic: denies: anemia, blood clots, easy bleeding, easy bruising, swollen glands, others Endocrine: denies: excessive hunger, excessive sweating, excessive thirst, excessive urination, flushing, intolerance to cold, intolerance to heat, unexplained weight gain, unexplained weight loss, others Psychiatric: reports: anxiety; denies: bipolar disorder, depression, hopeless, panic disorder, schizophrenia, sleepless, suicidal, others All Other Systems: Reviewed and Negative Physical Exam General Appearance: Mild Distress, Normal HEENT: Normal ENT Inspection, PERRL/EOMI, Pharynx Normal, TMs Normal Neck: Full Range of Motion, Non-Tender, Normal, Normal Inspection Respiratory: Chest Non-Tender, Expiration, No Accessory Muscle Use, No Respiratory Distress, Rhonchi Cardiovascular: No Edema, No JVD, No Murmur, No Gallop, Normal Peripheral Pulses, Regular Rate/Rhythm Breast Exam: Deferred Gastrointestinal: No Organomegaly, Non Tender, No Pulsatile Mass, Normal Bowel Sounds, Soft Genitalia: Deferred Pelvic: Deferred Rectal: Deferred Extremities: No calf tenderness, Normal capillary refill, Normal inspection, Normal range of motion, Non-tender, No pedal edema Musculoskeletal : Location: Left Apperance: Tenderness: Moderate (TENDERNESS LEFT SIDE MIDDLE AND LOWER RIBS, NO BONY TENDERNESS, SWELLING AND DEFORMITY. ) Neurologic: Alert, first coat sander II-XII nml as Tested, No Motor Deficits, Normal Affect, Normal Mood, No Sensory Deficits Cerebellar Function: Normal Reflexes: Normal Skin: Dry, Normal Color, Warm Peripheral Pulses: 2+ carotid (R), 2+ carotid (L) Lymphatic: No Adenopathy Was a procedure done? Was a procedure done?: No Back Pain Differential Dx Differential Diagnosis: Musculoskeletal Pain, Strain Other Differential Diagnosis INTERCOSTAL MUSCLE STRAIN, RIB SPRAIN, PNEUMONIA X-Ray, Labs, Meds, VS Vital Signs Date Time Temp Pulse Resp B/P (MAP) Pulse Ox O2 Delivery O2 Flow Rate FiO2 08/10/24 11:28 82 16 132/73 (92) 100 08/10/24 07:59 79 18 96 Room Air 08/10/24 05:41 97.4 79 18 163/92 (115) 96 Lab Test 08/10/24 08:13 08/10/24 07:00 Range/Units White Blood Count 7.2 4.4-10.8 10^3/uL Red Blood Count 4.09 4.0-5.20 10^6/uL Hemoglobin 12.7 12.2-16.2 g/dL Hematocrit 38.2 36.0-46.0 % Mean Corpuscular Volume 93.6 80.0-100.0 fL Mean Corpuscular Hemoglobin 31.0 28.0-32.0 pg Mean Corpuscular Hemoglobin Concent 33.2 32.0-36.0 g/dL Red Cell Distribution Width 14.7 H 11.8-14.3 % Platelet Count 232 140-450 10^3/uL Mean Platelet Volume 9.2 6.9-10.8 fL Neutrophils (%) (Auto) 58.3 37.0-80.0 % Lymphocytes (%) (Auto) 32.7 10.0-50.0 % Monocytes (%) (Auto) 7.7 0.0-12.0 % Eosinophils (%) (Auto) 0.2 0.0-7.0 % Basophils (%) (Auto) 1.1 0.0-2.0 % Neutrophils # (Auto) 4.2 1.6-8.6 10 ^3/uL Lymphocytes # (Auto) 2.3 0.4-5.4 10 ^3/uL Monocytes # (Auto) 0.6 0-1.3 10 ^3/uL Eosinophils # (Auto) 0 0-0.8 10 ^3/uL Basophils # (Auto) 0.1 0-0.2 10 ^3/uL Nucleated Red Blood Cells 0.2 % Sodium Level 144 136-145 mmol/L Potassium Level 2.6 L 3.5-5.1 mmol/L Chloride Level 104 98-107 mmol/L Carbon Dioxide Level 33 H 20-31 mmol/L Anion Gap 7 5-15 Blood Urea Nitrogen 15 9-23 mg/dL Creatinine 0.86 0.550-1.02 mg/dL Glomerular Filtration Rate Calc 80 >90 mL/min BUN/Creatinine Ratio 17.4 10.0-20.0 Serum Glucose 106 74-106 mg/dL Calcium Level 10.0 8.7-10.4 mg/dL Phosphorus Level 3.0 2.4-5.1 mg/dL Magnesium Level 2.2 1.6-2.6 mg/dL Total Bilirubin 0.7 0.2-1.0 mg/dL Aspartate Amino Transferase (AST) 11 L 13-40 U/L Alanine Aminotransferase (ALT) 16 7-40 U/L Alkaline Phosphatase 57 46-116 U/L Total Protein 6.8 5.7-8.2 g/dL Albumin 4.3 3.2-4.8 g/dL Lipase 36 12-53 U/L Urine Color Light-yellow Yellow Urine Clarity Clear Clear Urine pH 6.0 5.0-9.0 Urine Specific [place] 1.015 1.001-1.035 Urine Protein Negative Negative Urine Ketones Negative Negative Urine Blood Negative Negative /uL Urine Nitrite Negative Negative Urine Bilirubin Negative Negative Urine Urobilinogen Normal Negative mg/dL Urine Leukocyte Esterase Negative Negative /uL Urine RBC None seen 0 - 4 /hpf Urine WBC 1 0 - 5 /hpf Urine Squamous Epithelial Cells Few <5 /hpf Urine Bacteria None seen None Seen /hpf Urine Glucose Normal Normal mg/dL Current Medications Medications (Trade) Dose Ordered Sig/Christie Route Start Time Stop Time Status Last Admin Ketorolac Tromethamine (Toradol Injection) 60 mg ONCE ONCE IM 08/10/24 07:45 08/10/24 07:46 DC 08/10/24 07:55 Sodium Chloride 1,000 ml @ 150 mls/hr Q6H40M ONCE IV 08/10/24 09:45 08/10/24 16:24 08/10/24 09:49 Potassium Bicarbonate (Klor-Con/Ef) 75 meq ONCE ONCE PO 08/10/24 09:45 08/10/24 09:46 DC 08/10/24 09:44 Acetaminophen/ Hydrocodone Bitart ([place] 10/325MG Tab) 1 tab ONCE ONCE PO 08/10/24 10:30 08/10/24 10:31 DC 08/10/24 10:38 CLINICAL INFORMATION: 54 years old, Female; right side rib pain with inspiration. TECHNIQUE: Frontal and lateral chest radiographs were obtained. COMPARISON: CHEST TWO VIEWS ROUTINE on DOS: 09/17/21 FINDINGS: Lungs: Mild atelectasis in the lung bases. No focal consolidation visualized. No pneumothorax or pleural effusion. Cardiac: Heart size is within normal limits. Pulmonary vasculature: Unremarkable Mediastinum/gloria: Within normal limits. Bones: No evidence of acute osseous abnormality. Other: No other significant finding. IMPRESSION: Bibasilar atelectasis. No focal consolidation visualized. Correlate with clinical findings. ATED BY: PHIL ANTHONY DO DICTATED DATE/TIME: 08/10/24704 SIGNED BY: PHIL ANTHONY DO SIGNED DATE/TIME: 08/10/24704 CC: EXAM: CT CHEST WITHOUT CONTRAST HISTORY: LEFT SIDE RIBS PAIN COMPARISON: None TECHNIQUE: Axial images were obtained and reformatted in coronal and sagittal planes. All CT scans at this medical facility are performed using dose modulation techniques as appropriate to a performed exam including the following: Automated exposure control was utilized; adjustment of the MA and/or KV according to patient size; and use of iterative reconstruction technique. CT Dose: CTDI volume is 7.42 mGy. Dose-length product is 284.88 mGy*cm FINDINGS: Lower neck: Unremarkable. Cardiomediastinal: Mediastinal lymphadenopathy with lymph nodes measuring up to 2.9 x 2.4 cm some containing subcentimeter calcifications. The heart is normal in size. Aorta is normal in caliber scattered calcified plaques noted. Lungs: Unremarkable. Bones and Soft Tissues: No acute abnormality. Multilevel degenerative changes of the thoracic spine are noted. Upper Abdomen: No acute abnormality. Other: None. IMPRESSION: 1. No acute cardiopulmonary disease. 2. Mediastinal lymphadenopathy measuring up to 2.9 cm some containing subcentimeter calcifications. The differential diagnosis includes an old granul omatous disease, lymphoproliferative disorders or other. Recommend clinical and biochemical correlation. ATED BY: KINSEY VIDAL MD DICTATED DATE/TIME: 08/10/24834 SIGNED BY: KINSEY VIDAL MD SIGNED DATE/TIME: 08/10/24834 CC: X-Ray, Labs, Meds, VS Comment EXTERNAL MEDICAL RECORDS REVIEWED: [NONE] INDEPENDENT HISTORIANS: [NONE] SOCIAL DETERMINANTS OF HEALTH: [NONE] LABS ORDERED: UA, CBC, CMP, LIPASE REVIEWED AND INTERPRETED RESULTS: K 2.6 IMAGING ORDERED: XR CHEST, CT CHEST TREATMENTS ORDERED: TORADOL 60MG IM, NS 1L IV, POTASSIUM 75MEQ PO, [place] 10/325 PO PROCEDURES PERFORMED: NONE CRITICAL CARE TIME: NONE I HAVE DISCUSSED THE PATIENT WITH THE ATTENDING PHYSICIAN DR. YEPEZ AND HE AGREES WITH THE PATIENT'S PLAN OF CARE. UPON MY PHYSICAL EXAMINATION THE PATIENT CONTINUED TO HAVE INTRACTABLE LEFT RIB PAIN AND HAD TENDERNESS NOTED UPON PALPATION, BUT PATIENT WAS IN NO RESPIRATORY DISTRESS AT THIS TIME. DUE TO HER INTRACTABLE PAIN. MEDICAL HISTORY, AND HER HYPOKALEMIA, I HAVE DETERMINED THE PATIENT SHOULD BE ADMITTED FOR FURTHER TREATMENT AND EVALUATION. THE ON-CALL ADMITTING PHYSICIAN WILL BE CONTACTED FOR ADMISSION. Images Reviewed?: Images reviewed and evaluated by me Time of 1ST Reevaluation: 08:20 Reevaluation 1ST: Unchanged Time of 2ND Reevaluation: 10:00 Patient Education/Counseling: Diagnosis, Treatment Family Education/Counseling: Diagnosis, Treatment Departure 1 Departure Time of Disposition: 10:00 Impression: Primary Impression: Intractable pain Additional Impression: Hypokalemia Disposition: ADMITTED INPATIENT Condition: Serious Critical Care Note Critical Care Time?: No Stability Stability form required: Yes Unstable for transfer: Requires medication, ED Physician Assesment, Possible rapid decline Heart Score Heart Score: Heart Score Response (Comments) Value History N/A 0 EKG N/A 0 Age N/A 0 Risk Factors N/A 0 Troponin N/A 0 Total 0 I personally scribed for SHAHRZAD PEREIRA PA ([email or web address]) on 08/10/24 at 06:58. Electr onically submitted by Chris Reynolds ([email or web address]). I personally scribed for VASYL PEREIRAA PA ([email or web address]) on 08/10/24 at 07:11. Electr onically submitted by Chris Reynolds ([email or web address]). I personally scribed for VASYL PEREIRAA PA ([email or web address]) on 08/10/24 at 07:41. Electr onically submitted by Chris Reynolds ([email or web address]). I personally scribed for KELLIVASYL RichardsA PA ([email or web address]) on 08/10/24 at 07:43. Electr onically submitted by Chris Reynolds ([email or web address]). I personally scribed for KELLIVASYL RichardsA PA ([email or web address]) on 08/10/24 at 08:44. Electr onically submitted by Chris Reynolds ([email or web address]). I personally scribed for VASYL PEREIRAA PA ([email or web address]) on 08/10/24 at 09:56. Electr onically submitted by Chris Reynolds ([email or web address]). SHAHRZAD PEREIRA Aug 10, 2024 06:58
--- NOTE | 2024-08-10 07:08 | DVH ---
CLINICAL INFORMATION: 54 years old, Female; right side rib pain with inspiration. TECHNIQUE: Frontal and lateral chest radiographs were obtained. COMPARISON: CHEST TWO VIEWS ROUTINE on DOS: 09/17/21 FINDINGS: Lungs: Mild atelectasis in the lung bases. No focal consolidation visualized. No pneumothorax or pleu ral effusion. Cardiac: Heart size is within normal limits. Pulmonary vasculature: Unremarkable Mediastinum/gloria: Within normal limits. Bones: No evidence of acute osseous abnormality. Other: No other significant finding. IMPRESSION: Bibasilar atelectasis. No focal consolidation visualized. Correlate with clinical findings.
[2024-08-10 07:16] LABS: Urine Bacteria None Seen /hpf (None Seen)
[2024-08-10 07:36] LABS: Urine Blood Negative /uL (Negative); Urine Clarity Clear (Clear); Urine Color Light-Yellow (Yellow); Urine Protein, UAD Negative (Negative); Urine Specific Gravity 1.015 (1.001-1.035); Urine Urobilinogen Normal (Negative); Urine WBC 1 /hpf (0 - 5)
[2024-08-10] MEDS: KETOROLAC TROMETH 60MG/2ML VIAL IM ONE (07:55)
[2024-08-10 08:20] LABS: Basophils # (auto) 0.1 10 ^3/uL (0-0.2); Basophils % (auto) 1.1 % (0.0-2.0); Eosinophils # (auto) 0 10 ^3/uL (0-0.8); Eosinophils % (auto) 0.2 % (0.0-7.0); Hematocrit 38.2 % (36.0-46.0); Hemoglobin 12.7 g/dL (12.2-16.2); Lymphocytes # (auto) 2.3 10 ^3/uL (0.4-5.4); Lymphocytes % (auto) 32.7 % (10.0-50.0); Mean Corpuscular Hgb Conc. 33.2 g/dL (32.0-36.0); Mean Corpuscular Volume 93.6 fL (80.0-100.0); Monocytes # (auto) 0.6 10 ^3/uL (0-1.3); Monocytes % (auto) 7.7 % (0.0-12.0); Neutrophils # (auto) 4.2 10 ^3/uL (1.6-8.6); Neutrophils % (auto) 58.3 % (37.0-80.0); Nucleated Red Blood Cells % 0.2 %; Platelet Count (auto) 232 10^3/uL (140-450); Red Blood Cells 4.09 10^6/uL (4.0-5.20); Red Cell Distribution Width 14.7 % (11.8-14.3); White Blood Cell 7.2 10^3/uL (4.4-10.8)
--- NOTE | 2024-08-10 08:37 | DVH ---
EXAM: CT CHEST WITHOUT CONTRAST HISTORY: LEFT SIDE RIBS PAIN COMPARISON: None TECHNIQUE: Axial images were obtained and reformatted in coronal and sagittal planes. All CT scans at this medical facility are performed using dose modulation techniques as appropriate to a performed exam including the following: Automated exposure control was utilized; adjustment of the MA and/or K V according to patient size; and use of iterative reconstruction technique. CT Dose: CTDI volume is 7.42 mGy. Dose-length product is 284.88 mGy*cm FINDINGS: Lower neck: Unremarkable. Cardiomediastinal: Mediastinal lymphadenopathy with lymph nodes measuring up to 2.9 x 2.4 cm some co ntaining subcentimeter calcifications. The heart is normal in size. Aorta is normal in caliber scatt ered calcified plaques noted. Lungs: Unremarkable. Bones and Soft Tissues: No acute abnormality. Multilevel degenerative changes of the thoracic spine are noted. Upper Abdomen: No acute abnormality. Other: None. IMPRESSION: 1. No acute cardiopulmonary disease. 2. Mediastinal lymphadenopathy measuring up to 2.9 cm some containing subcentimeter calcifications. T he differential diagnosis includes an old granulomatous disease, lymphoproliferative disorders or oth er. Recommend clinical and biochemical correlation.
[2024-08-10 08:39] LABS: Alanine Aminotransferase 16 U/L (7-40); Albumin 4.3 g/dL (3.2-4.8); Alkaline Phosphatase 57 U/L (46-116); Anion Gap 7 (5-15); BUN/Creatinine Ratio 17.4 (10.0-20.0); Bilirubin, Total 0.7 mg/dL (0.2-1.0); Blood Urea Nitrogen 15 mg/dL (9-23); Chloride 104 mmol/L (98-107); Glucose 106 mg/dL (74-106); Sodium 144 mmol/L (136-145); Total Protein 6.8 g/dL (5.7-8.2)
[2024-08-10 08:42] LABS: Aspartate Aminotransferase 11 U/L (13-40); Carbon Dioxide 33 mmol/L (20-31); Potassium 2.6 mmol/L (3.5-5.1)
[2024-08-10] MEDS: POTASSIUM EFFERVESENT TAB 25 MEQ PO ONE (09:44)
[2024-08-10] MEDS: SODIUM CHLORIDE 0.9% 1,000 ML IV ONE (09:49)
[2024-08-10] MEDS: HYDROcodone-ACET 10/325MG TAB PO ONE (10:38)
--- NOTE | 2024-08-10 11:06 | DVHHP2 ---
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 She states she has been dealing on and off for the last 10 years but in the last two weeks the pain has been constant and has not given her any relief. Patient states the pain is worse when she is taking a deep breath in she states it feels uncomfortable. She states it feels like a squeezing pain in the left rib area. She has a no shortness with the breath no chest pain denies any coughing up blood. She states she did see Dr. Stephenson this week he provided her prednisone orally she has been taking as prescribed but she states that she has not gotten any better. She states only time she does feel little bit better was sent in hot water. She also takes unremarkable she was chronic back pain she does see pain management. When evaluating patient's labs and imaging [employer] was given potassium normal saline Toradol CBC was unremarkable potassium was found to be 2.6 otherwise BNP was unremarkable CT scan of the chest shows mediastinal lymphadenopathy 2.9 cm bilateral atelectasis was also seen. With these findings we will admit patient for IV hydration steroids if patient is no improvement can consider Pulmonary Dr. Stephenson in the a.m. Past Medical History See HPI above Past Surgical History See HPI above Family History Reviewed, non-contributory to the management of this case. Past Social History The patient lives at home, denies smoking, alcohol or illicit drugs abuse. Review of Systems Constitutional: No: Fever, Chills, Sweats, Weakness, Malaise, Other Eyes: No: Pain, Vision change, Conjunctivae inflammation, Eyelid inflammation, Other, Redness ENT: No: Ear pain, Ear discharge, Nose pain, Nose discharge, Nose congestion, Mouth pain, Mouth swelling, Throat pain, Throat swelling, Other Respiratory: Shortness of breath, Pleuritic Pain, Other (Left rib pain); No: Cough, Dry, SOB with excertion, Wheezing, Hemoptysis, Sputum, Wheezing Cardiovascular: No: Chest Pain, Palpitations, Orthopnea, Paroxysmal Noc. Dyspnea, Edema, Lt Headedness, Other Gastrointestinal: No: Nausea, Vomiting, Abdominal Pain, Diarrhea, Constipation, Melena, Hematochezia, Other Genitourinary: No Dysuria, No Frequency, No Incontinence, No Hematuria, No Retention, No Other Musculoskeletal: No: other, neck pain, shoulder pain, arm pain, back pain, hand pain, leg pain, foot pain Skin: No: Rash, Lesions, Jaundice, Bruising, Other Neurological: No: Weakness, Numbness, Incoordination, Change in speech, Confusion, Seizures, Other Allergies: Coded Allergies: NO KNOWN ALLERGIES (Unverified , 09/17/21) Exam Vital Signs Vital Signs Date Time Temp Pulse Resp B/P (MAP) Pulse Ox O2 Delivery O2 Flow Rate FiO2 08/10/24 07:59 79 18 96 Room Air 08/10/24 05:41 97.4 163/92 (115) General Appearance: Alert, Oriented X3, Cooperative, No acute distress HEENT: Atraumatic, PERRLA, EOMI, Mucous membr. moist/pink Respiratory: Clear to auscultation, Normal air movement, Other (Tenderness upon palpation and left lower rib area there was no erythema no rash seen) Cardiovascular: Regular rate, Normal S1, Normal S2, No murmurs Abdominal: Normal bowel sounds, Soft, No tenderness, No hepatospenomegaly, No masses Extremities: No clubbing, No cyanosis, No edema, Normal pulses, No tenderness/swelling Skin: No rashes, No breakdown, No significant lesion Neuro: Normal gait, Normal speech, Strength at 5/5 X4 ext, Normal tone, Sensation intact, Cranial nerves 3-12 NL Psych/Mental Status: Mental status NL, Mood NL Labs/Xrays CT scan of the chest shows mediastinal lymphadenopathy 2.9 cm bilateral atelectasis otherwise unremarkable I reviewed labs, imaging CT scan abdomen pelvis, EKG and all diagnostic studies on this patient from ED records and the medical chart Labs Test 08/10/24 08:13 08/10/24 07:00 Range/Units White Blood Count 7.2 4.4-10.8 10^3/uL Red Blood Count 4.09 4.0-5.20 10^6/uL Hemoglobin 12.7 12.2-16.2 g/dL Hematocrit 38.2 36.0-46.0 % Mean Corpuscular Volume 93.6 80.0-100.0 fL Mean Corpuscular Hemoglobin 31.0 28.0-32.0 pg Mean Corpuscular Hemoglobin Concent 33.2 32.0-36.0 g/dL Red Cell Distribution Width 14.7 H 11.8-14.3 % Platelet Count 232 140-450 10^3/uL Mean Platelet Volume 9.2 6.9-10.8 fL Neutrophils (%) (Auto) 58.3 37.0-80.0 % Lymphocytes (%) (Auto) 32.7 10.0-50.0 % Monocytes (%) (Auto) 7.7 0.0-12.0 % Eosinophils (%) (Auto) 0.2 0.0-7.0 % Basophils (%) (Auto) 1.1 0.0-2.0 % Neutrophils # (Auto) 4.2 1.6-8.6 10 ^3/uL Lymphocytes # (Auto) 2.3 0.4-5.4 10 ^3/uL Monocytes # (Auto) 0.6 0-1.3 10 ^3/uL Eosinophils # (Auto) 0 0-0.8 10 ^3/uL Basophils # (Auto) 0.1 0-0.2 10 ^3/uL Nucleated Red Blood Cells 0.2 % Sodium Level 144 136-145 mmol/L Potassium Level 2.6 L 3.5-5.1 mmol/L Chloride Level 104 98-107 mmol/L Carbon Dioxide Level 33 H 20-31 mmol/L Anion Gap 7 5-15 Blood Urea Nitrogen 15 9-23 mg/dL Creatinine 0.86 0.550-1.02 mg/dL Glomerular Filtration Rate Calc 80 >90 mL/min BUN/Creatinine Ratio 17.4 10.0-20.0 Serum Glucose 106 74-106 mg/dL Calcium Level 10.0 8.7-10.4 mg/dL Total Bilirubin 0.7 0.2-1.0 mg/dL Aspartate Amino Transferase (AST) 11 L 13-40 U/L Alanine Aminotransferase (ALT) 16 7-40 U/L Alkaline Phosphatase 57 46-116 U/L Total Protein 6.8 5.7-8.2 g/dL Albumin 4.3 3.2-4.8 g/dL Urine Color Light-yellow Yellow Urine Clarity Clear Clear Urine pH 6.0 5.0-9.0 Urine Specific [place] 1.015 1.001-1.035 Urine Protein Negative Negative Urine Ketones Negative Negative Urine Blood Negative Negative /uL Urine Nitrite Negative Negative Urine Bilirubin Negative Negative Urine Urobilinogen Normal Negative mg/dL Urine Leukocyte Esterase Negative Negative /uL Urine RBC None seen 0 - 4 /hpf Urine WBC 1 0 - 5 /hpf Urine Squamous Epithelial Cells Few <5 /hpf Urine Bacteria None seen None Seen /hpf Urine Glucose Normal Normal mg/dL Assessment/Plan Assessment/Plan acute intractable rib pain left side cxr no fx ordered morphine as needed for pain ordered albuterol/atrovent prn sob enc incentive spirometer acute bronchitis viral no antibiotics needed ordered albuterol/atrovent prn sob 02 to keep sats >92% acute atelectasis ordered incentive spirometer enc use 10 times qhour acute hypokalemia replete k ordered mag and phos fu results chronic problems with continuation of home medication uncontrolled benign essential hypertension sarcoidosis back pain fen/ppx no gi ppx since no hx of gerds or gi bleed scd for now no dvt ppx since pt is ambulatory hl plan admit to tele since with hypokalemia Plan discussed with: Patient Date of Service: Aug 10, 2024 Billing Provider: KINGS CRUZ DNP Common Visit Codes: [id number] INP/OBS CARE (HIGH) KINGS CRUZ DNP Aug 10, 2024 11:06
[2024-08-10 11:38] LABS: Lipase 36 U/L (12-53)
[2024-08-10] MEDS ORDERED: NITROGLYCERIN 0.4 MG SL TAB SL PRN (11:45)
[2024-08-10] MEDS: PANTOPRAZOLE 40 MG/10 ML VIAL INJ IV ONE (12:31)
[2024-08-10] MEDS: methylPREDNISolone SOD SUCC 125 MG/2 ML VL IV ONE (12:31)
[2024-08-10 12:33] LABS: Magnesium 2.2 mg/dL (1.6-2.6)
[2024-08-10] MEDS: METHOCARBAMOL 500 MG TAB PO PRN (12:39)
[2024-08-10] MEDS: ERGOCALCIFEROL 50,000 UNIT(1.25MG) CAP PO SCH (12:58)
[2024-08-10 16:18] VITALS: PULSE 86; RESP 16; O2SAT 96
[2024-08-10 17:45] VITALS: BP 126/63; PULSE 73; RESP 16; TEMP 97.6; O2SAT 96
[2024-08-10] MEDS ORDERED: DOXY1CAP58 PO (18:49)
[2024-08-10] MEDS ORDERED: DOXY150C6 PO (18:49)
[2024-08-10] MEDS ORDERED: IBUP-1456 PO (18:50)
[2024-08-10] MEDS ORDERED: PRED20TA2 PO (18:50)
[2024-08-10] MEDS ORDERED: OXYB5TAB14 PO (18:51)
[2024-08-10] MEDS ORDERED: HYDR25TA5 PO (18:51)
[2024-08-10] MEDS ORDERED: HYDR-4798 PO (18:52)
[2024-08-10] MEDS ORDERED: BUDE1AER16 IN (18:52)
[2024-08-10] MEDS ORDERED: FLUT1AER5 IN (18:54)
[2024-08-10] MEDS ORDERED: ALBU2TAB11 PO (18:54)
[2024-08-10] MEDS ORDERED: IPRIH INH (18:56)
[2024-08-10] MEDS: HYDROcodone-ACET 10/325MG TAB PO PRN (18:59)
--- NOTE | 2024-08-10 20:46 | DVHINCON2 ---
Date of service: Aug 10, 2024 Referring Physician Aury Alfredo DNP Reason for Consultation Cough, left rib pain, atelectasis History of Present Illness A 54-year-old woman with PMHx of hypertension, sarcoidosis, and chronic back pain who presents to ED c/o left rib pain, which is ongoing for last 10 years but constant over the last 2 weeks without relief, prompting pt to seek medical care. Pain is worse with deep breathing, is a squeezing pain in the left rib area. Admits to cough. Denies SOB, chest pain or hemoptysis. Of note, she did see Dr. Stephenson this week and is on prednisone, although reports no relief of sx. Pt sees Pain Management for her chronic back pain. Chest CT scan showed mediastinal lymphadenopathy 2.9 cm, bilateral atelectasis. Patient was thus admitted for further care and pulmonary consultation is requested for evaluation and management d/t these findings. Review of Systems: 14-point review of systems negative unless otherwise noted above. Past Medical History: Hypertension, sarcoidosis, and chronic back pain Past Surgical History: Hysterectomy and Medications: Reviewed. Allergies: No known drug allergies. Family History: Positive family history of cancer. Social History: Nonsmoker. No alcohol or illicit drug use. Family History: FH: cancer G8 MOTHER G8 FATHER Allergies: Coded Allergies: NO KNOWN ALLERGIES (Unverified , 09/17/21) Home Meds Reported Medications Ipratropium [place] Hfa (Atrovent Hfa) 17 Mcg Aer, 2 PUFF INH QID, #12.9 GRAMS 5 Refills 08/10/24 Fluticasone-Salmeterol (Wixela Inhub 100-50 Mcg/Dose) 1 Aer Aer, 1 AER IN, AER 08/10/24 Albuterol Sulfate (Albuterol Sulfate) 2 Mg Tab, 90 MCG PO Q6HP PRN for FOR COUGH, MG 08/10/24 Budesonide-Formoterol Fumarate (Breyna 160-4.5 Mcg/Act) 1 Aer Aer, 1 AER IN, AER 08/10/24 Hydrocodone-Acetaminophen (Hydrocodone Bitartrate/AC 10-325 mg) 1 Tab Tab, 1 TAB PO QID, TAB 08/10/24 Oxybutynin Chloride (Oxybutynin Chloride) 5 Mg Tab, 5 MG PO DAILY, TAB 08/10/24 Hctz (Hydrochlorothiazide) 25 Mg Tab, 50 MG PO BID, TAB 08/10/24 Prednisone (Prednisone) 20 Mg Tab, 20 MG PO BID, MG 08/10/24 Ibuprofen (Ibuprofen) 800 Mg Tab, 800 MG PO PRN, MG 08/10/24 Doxycycline (Monohydrate) (Doxycycline) 100 Mg Cap, 100 MG PO BID, CAP 08/10/24 Metoprolol Tartrate (Metoprolol Tartrate) 50 Mg Tab, 50 MG PO for 30 Days, MG 11/09/22 Current Medications Current Medications Medications (Trade) Dose Ordered Sig/Christie Route PRN Reason Start Time Stop Time Status Last Admin Gabapentin (Neurontin Capsule) 300 mg DAILY PO 08/11/24 10:00 Metoprolol Tartrate (Lopressor Tablet) 50 mg BID PO 08/10/24 22:00 Ergocalciferol (Vitamin D 50,000 Unit) 50,000 unit 2XW PO 08/10/24 12:30 08/10/24 12:58 Methocarbamol (Robaxin) 750 mg QHSP PRN PO SEVERE PAIN (7-10 PAIN SCALE) 08/10/24 12:00 08/10/24 12:39 Methylprednisolone Sodium Succinate (Solu Medrol) 40 mg BID IV 08/10/24 22:00 Pantoprazole Sodium (Protonix) 40 mg DAILY IV 08/11/24 10:00 Nitroglycerin (Ntrostat Sublingual) 0.4 mg Q5MINP PRN SL FOR CHEST PAIN 08/10/24 11:45 Acetaminophen/ Hydrocodone Bitart ([place] 10/325MG Tab) 1 tab Q4HP PRN PO SEVERE PAIN (7-10 PAIN SCALE) 08/10/24 11:45 08/10/24 18:59 Vital Signs Vital Signs Date Time Temp Pulse Resp B/P (MAP) Pulse Ox O2 Delivery O2 Flow Rate FiO2 08/10/24 17:46 Room Air* 0 21 08/10/24 17:45 97.6 73 16 126/63 (84) 96 97.6 Physical Exam Gen.: Patient lying in bed in no apparent distress. Breathing on room air. Head: Normocephalic, atraumatic. Eyes: EOMI/PERRLA. Ears: Normal hearing. Normal anatomy. Neck/trachea: Trachea midline, supple. Nose: Normal external anatomy. Mouth: Moist mucous membranes. Chest: Decreased air entry bilaterally. No wheezing or rhonchi. Cardiovascular: Positive S1, positive S2. Regular rate and rhythm. Abdomen: Positive bowel sounds in all 4 quadrants. Soft, non-tender, non- distended. : Deferred. Rectal: Deferred. Skin: Warm, dry. Intact. Extremities: 2+ radial pulses bilaterally. No lower extremity edema. Neuro: Awake, alert, oriented x3. No gross motor or sensory deficits. Cranial nerves II through XII intact. Gait not assessed. Labs/Diagnostic Data Labs Test 08/10/24 08:13 08/10/24 07:00 Range/Units White Blood Count 7.2 4.4-10.8 10^3/uL Red Blood Count 4.09 4.0-5.20 10^6/uL Hemoglobin 12.7 12.2-16.2 g/dL Hematocrit 38.2 36.0-46.0 % Mean Corpuscular Volume 93.6 80.0-100.0 fL Mean Corpuscular Hemoglobin 31.0 28.0-32.0 pg Mean Corpuscular Hemoglobin Concent 33.2 32.0-36.0 g/dL Red Cell Distribution Width 14.7 H 11.8-14.3 % Platelet Count 232 140-450 10^3/uL Mean Platelet Volume 9.2 6.9-10.8 fL Neutrophils (%) (Auto) 58.3 37.0-80.0 % Lymphocytes (%) (Auto) 32.7 10.0-50.0 % Monocytes (%) (Auto) 7.7 0.0-12.0 % Eosinophils (%) (Auto) 0.2 0.0-7.0 % Basophils (%) (Auto) 1.1 0.0-2.0 % Neutrophils # (Auto) 4.2 1.6-8.6 10 ^3/uL Lymphocytes # (Auto) 2.3 0.4-5.4 10 ^3/uL Monocytes # (Auto) 0.6 0-1.3 10 ^3/uL Eosinophils # (Auto) 0 0-0.8 10 ^3/uL Basophils # (Auto) 0.1 0-0.2 10 ^3/uL Nucleated Red Blood Cells 0.2 % Sodium Level 144 136-145 mmol/L Potassium Level 2.6 L 3.5-5.1 mmol/L Chloride Level 104 98-107 mmol/L Carbon Dioxide Level 33 H 20-31 mmol/L Anion Gap 7 5-15 Blood Urea Nitrogen 15 9-23 mg/dL Creatinine 0.86 0.550-1.02 mg/dL Glomerular Filtration Rate Calc 80 >90 mL/min BUN/Creatinine Ratio 17.4 10.0-20.0 Serum Glucose 106 74-106 mg/dL Calcium Level 10.0 8.7-10.4 mg/dL Phosphorus Level 3.0 2.4-5.1 mg/dL Magnesium Level 2.2 1.6-2.6 mg/dL Total Bilirubin 0.7 0.2-1.0 mg/dL Aspartate Amino Transferase (AST) 11 L 13-40 U/L Alanine Aminotransferase (ALT) 16 7-40 U/L Alkaline Phosphatase 57 46-116 U/L Total Protein 6.8 5.7-8.2 g/dL Albumin 4.3 3.2-4.8 g/dL Lipase 36 12-53 U/L Urine Color Light-yellow Yellow Urine Clarity Clear Clear Urine pH 6.0 5.0-9.0 Urine Specific [place] 1.015 1.001-1.035 Urine Protein Negative Negative Urine Ketones Negative Negative Urine Blood Negative Negative /uL Urine Nitrite Negative Negative Urine Bilirubin Negative Negative Urine Urobilinogen Normal Negative mg/dL Urine Leukocyte Esterase Negative Negative /uL Urine RBC None seen 0 - 4 /hpf Urine WBC 1 0 - 5 /hpf Urine Squamous Epithelial Cells Few <5 /hpf Urine Bacteria None seen None Seen /hpf Urine Glucose Normal Normal mg/dL Assessment Impression: Cough Left rib pain Mediastinal lymphadenopathy Atelectasis Hypokalemia Intractable pain Acute hypoxic respiratory failure due to hypoventilation 2/2 rib pain Sarcoid exacerbation Plan: Supplemental oxygen On 2 LPM via NC Titrate to keep O2 sats above 92%. . IV steroids due to sarcoid flare up Incentive spirometry due to atelectasis Pain control Avoid oversedation Potassium supplementation Monitor renal function. Monitor electrolytes. Supplement as necessary. Monitor ins and outs. GI prophylaxis - Protonix DVT prophylaxis. Prognosis: Poor given patient's multiple co-morbidities. Rest of plan per hospitalist and other consultants. Thank you, Aury Alfredo NP, for allowing me to participate in this patient's care. Further recommendations will depend on the patient's clinical course. Please do not hesitate to contact me if you have any questions or concerns. This medical document was created using an electronic medical record system with [employer] dictation system. Although these documentations are being carefully reviewed, there may still be some phonetic and typographical changes. The errors are purely typographical, due to imperfection on the software program, and do not reflect any compromise in the patient's medical care. Plan discussed with: Patient, Other (RN/SRI Alfredo/) JESSE STEPHENSON MD Aug 10, 2024 20:45
[2024-08-10] MEDS: METOPROLOL TARTRATE 50 MG TAB PO SCH (21:09)
[2024-08-10] MEDS: methylPREDNISolone SOD SUCC 40 MG/ML VL IV SCH (21:10)
[2024-08-10 22:00] VITALS: BP 113/66; PULSE 91; RESP 18; TEMP 97.5; O2SAT 92
[2024-08-11] VITALS (12 sets, daily range): BP systolic 118–154; BP diastolic 72–92; PULSE 51–73; RESP 16–18; TEMP 97.4–98.5; O2SAT 95–99
[2024-08-11] MEDS: GABAPENTIN 300 MG CAP PO SCH (11:03)
[2024-08-11] MEDS: PANTOPRAZOLE 40 MG/10 ML VIAL INJ IV SCH (11:03)
--- NOTE | 2024-08-11 11:50 | DVHPN2 ---
Reviewed: Care Plan, H&P, Labs, Medications, Previous Orders, Radiology Changes from previous H/P or p: No Changes Eyes: No Pain, No Vision change, No Conjunctivae inflammation, No Eyelid inflammation, No Other, No Redness ENT: No Ear pain, No Ear discharge, No Nose pain, No Nose discharge, No Nose congestion, No Mouth pain, No Mouth swelling, No Throat pain, No Throat swelling, No Other Cardiovascular: No Chest Pain, No Palpitations, No Orthopnea, No Paroxysmal Noc. Dyspnea, No Edema, No Lt Headedness, No Other Respiratory: No Cough, No Dry; Shortness of breath; No SOB with excertion, No Wheezing, No Hemoptysis; Pleuritic Pain; No Sputum; Other (Left rib pain) Gastrointestinal: No Nausea, No Vomiting, No Abdominal Pain, No Diarrhea, No Constipation, No Melena, No Hematochezia, No Other Genitourinary: No Dysuria, No Frequency, No Incontinence, No Hematuria, No Retention, No Other Musculoskeletal: No other, No neck pain, No shoulder pain, No arm pain, No back pain, No hand pain, No leg pain, No foot pain Skin: No Rash, No Lesions, No Jaundice, No Bruising, No Other Objective Vitals Vital Signs Date Time Temp Pulse Resp B/P (MAP) Pulse Ox O2 Delivery O2 Flow Rate FiO2 08/11/24 11:04 73 154/72 08/11/24 09:00 98.5 16 98 98.5 08/10/24 20:00 Nasal Cannula* 2 28 Intake/Output Intake and Output 08/11/24 07:00 Intake Total 1200 ml Balance 1200 ml Intake Oral 600 ml IV Total 600 ml # Voids 4 Medications Current Medications Medications Dose Ordered Sig/Christie Route Start Time Stop Time Status Last Admin Dose Admin Gabapentin 300 mg DAILY PO 08/11/24 10:00 08/11/24 11:03 300 MG Metoprolol Tartrate 50 mg BID PO 08/10/24 22:00 08/11/24 11:04 50 MG Ergocalciferol 50,000 unit 2XW PO 08/10/24 12:30 08/10/24 12:58 50,000 UNIT Methocarbamol 750 mg QHSP PRN PO 08/10/24 12:00 08/10/24 12:39 750 MG Methylprednisolone Sodium Succinate 40 mg BID IV 08/10/24 22:00 08/11/24 11:03 40 MG Pantoprazole Sodium 40 mg DAILY IV 08/11/24 10:00 08/11/24 11:03 40 MG Nitroglycerin 0.4 mg Q5MINP PRN SL 08/10/24 11:45 Acetaminophen/ Hydrocodone Bitart 1 tab Q4HP PRN PO 08/10/24 11:45 08/11/24 07:53 1 TAB Laboratory Results Laboratory Tests 08/10/24 08:13 Urinalysis Test 08/10/24 07:00 Urine Color Light-yellow (Yellow) Urine Clarity Clear (Clear) Urine pH 6.0 (5.0-9.0) Urine Specific [place] 1.015 (1.001-1.035) Urine Protein Negative (Negative) Urine Ketones Negative (Negative) Urine Blood Negative /uL (Negative) Urine Nitrite Negative (Negative) Urine Bilirubin Negative (Negative) Urine Urobilinogen Normal mg/dL (Negative) Urine Leukocyte Esterase Negative /uL (Negative) Urine RBC None seen /hpf (0 - 4) Urine WBC 1 /hpf (0 - 5) Urine Squamous Epithelial Cells Few /hpf (<5) Urine Bacteria None seen /hpf (None Seen) Urine Glucose Normal mg/dL (Normal) Labs and/or images reviewed: Labs reviewed by me, Image(s) reviewed by me Assessment/Plan Assessment/Plan Acute on chronic intractable left rib pain: Consult by Dr. Stephenson appreciated [place] Robaxin Solu-Medrol gabapentin Acute bronchitis possibly viral etiology Acute atelectasis Acute hypokalemia: Replace potassium Sarcoidosis Hypertension metoprolol PCP Dr. Joseph Plan discussed with: Patient Date of Service: Aug 11, 2024 Billing Provider: MARIA ISABEL KURTZ MD Common Visit Codes: [id number] INP/OBS CARE(HIGH) MARIAI SABEL KURTZ MD Aug 11, 2024 11:50
[2024-08-11] MEDS ORDERED: ERGOCALCIFEROL 50,000 UNIT(1.25MG) CAP PO SCH (12:00)
[2024-08-11] MEDS: ALBUTEROL SULF 2.5 MG/0.5ML(0.5%) NEB SOLN NEB SCH (13:47)
[2024-08-11] MEDS: IPRATROPIUM BROM 0.5 MG/2.5ML INH SOL NEB SCH (13:48)
[2024-08-11] MEDS: BUDESONIDE (INHALATION) 0.5 MG/2 ML NEB NEB SCH (18:10)
--- NOTE | 2024-08-11 20:46 | DVHPN2 ---
Progress Note - Dictate Date Seen: Aug 11, 2024 Medical Necessity Reason Pt with a Central, PICC or Fol: No Subjective Patient seen and examined at bedside. Remains on supplemental oxygen Overnight events reviewed. vital signs Vital Sign Date Time Temp Pulse Resp B/P (MAP) Pulse Ox O2 Delivery O2 Flow Rate FiO2 08/11/24 18:11 58 18 99 08/11/24 17:00 98.4 118/75 (89) 98.4 08/11/24 16:16 0.0 21 08/11/24 13:48 Room Air Total Intake and Output 08/10/24 08/10/24 08/11/24 15:00 23:00 07:00 Intake Total 600 ml 600 ml Balance 600 ml 600 ml medications Current Medications Medications Dose Ordered Sig/Christie Route Start Time Stop Time Status Last Admin Dose Admin Gabapentin 300 mg DAILY PO 08/11/24 10:00 08/11/24 11:03 300 MG Metoprolol Tartrate 50 mg BID PO 08/10/24 22:00 08/11/24 11:04 50 MG Methocarbamol 750 mg QHSP PRN PO 08/10/24 12:00 08/10/24 12:39 750 MG Methylprednisolone Sodium Succinate 40 mg BID IV 08/10/24 22:00 08/11/24 11:03 40 MG Pantoprazole Sodium 40 mg DAILY IV 08/11/24 10:00 08/11/24 11:03 40 MG Nitroglycerin 0.4 mg Q5MINP PRN SL 08/10/24 11:45 Acetaminophen/ Hydrocodone Bitart 1 tab Q4HP PRN PO 08/10/24 11:45 08/11/24 07:53 1 TAB Albuterol 2.5 mg Q6HR NEB 08/11/24 12:00 08/11/24 18:10 2.5 MG Ipratropium [place] 0.5 mg Q6HR NEB 08/11/24 12:00 08/11/24 18:10 0.5 MG Budesonide 0.5 mg BID NEB 08/11/24 22:00 08/11/24 18:10 0.5 MG Ergocalciferol 50,000 unit 2XW PO 08/11/24 12:00 Hold objective Gen.: Patient lying in bed in no apparent distress. On supplemental oxygen. Head: Normocephalic, atraumatic. Eyes: EOMI/PERRLA. Ears: Normal hearing. Normal anatomy. Neck/trachea: Trachea midline, supple. Nose: Normal external anatomy. Mouth: Moist mucous membranes. Chest: Decreased air entry bilaterally. No wheezing or rhonchi. Cardiovascular: Positive S1, positive S2. Regular rate and rhythm. Abdomen: Positive bowel sounds in all 4 quadrants. Soft, non-tender, non- distended. : Deferred. Rectal: Deferred. Skin: Warm, dry. Intact. Extremities: 2+ radial pulses bilaterally. No lower extremity edema. Neuro: Awake, alert, oriented x3. No gross motor or sensory deficits. Cranial nerves II through XII intact. Gait not assessed. laboratory and microbiology Laboratory Tests 08/10/24 08:13 Test 08/10/24 08:13 Range/Units Serum Glucose 106 74-106 mg/dL Assessment/Plan Impression: Cough Left rib pain Mediastinal lymphadenopathy Atelectasis Hypokalemia Intractable pain Acute hypoxic respiratory failure due to hypoventilation 2/2 rib pain Sarcoid exacerbation Events: Remains on supplemental oxygen, 2 LPM NC Taper O2 as tolerated Continue bronchodilators - albuterol/ipratropium IV steroids for sarcoid flareup Pulmicort BID Antibiotics - start Azithromycin Incentive spirometry Labs and imaging reviewed. Rest of plan as noted below. Plan: Supplemental oxygen On 2 LPM via NC Titrate to keep O2 sats above 92%. . IV steroids due to sarcoid flare up Incentive spirometry due to atelectasis Pain control Avoid oversedation Potassium supplementation Monitor renal function. Monitor electrolytes. Supplement as necessary. Monitor ins and outs. GI prophylaxis - Protonix DVT prophylaxis. Prognosis: Poor given patient's multiple co-morbidities. Rest of plan per hospitalist and other consultants. Thank you, Aury Alfredo NP, for allowing me to participate in this patient's care. Further recommendations will depend on the patient's clinical course. Please do not hesitate to contact me if you have any questions or concerns. This medical document was created using an electronic medical record system with [employer] system. Although these documentations are being carefully reviewed, there may still be some phonetic and typographical changes. The errors are purely typographical, due to imperfection on the software program, and do not reflect any compromise in the patient's medical care. Plan discussed with: Patient, Other (JESSE Disla MD Aug 11, 2024 20:46
[2024-08-12] VITALS (10 sets, daily range): BP systolic 110–137; BP diastolic 62–97; PULSE 46–78; RESP 16–100; TEMP 97.6–98.6; O2SAT 92–100
[2024-08-12 11:43] LABS: Anion Gap 6 (5-15); Chloride 106 mmol/L (98-107); Sodium 144 mmol/L (136-145)
[2024-08-12 11:44] LABS: Calcium 9.6 mg/dL (8.7-10.4)
[2024-08-12 11:49] LABS: Blood Urea Nitrogen 12 mg/dL (9-23); Magnesium 2.4 mg/dL (1.6-2.6)
[2024-08-12 12:01] LABS: Carbon Dioxide 32 mmol/L (20-31); Glucose 112 mg/dL (74-106)
--- NOTE | 2024-08-12 13:24 | DVHINCON2 ---
Date Seen: Aug 12, 2024 Referring Physician MD Bernice Reason for Consultation Bradycardia History of Present Illness This is a 54-year-old female patient who presents to the emergency room with chief complaint of left ribcage pain. The patient reports that she has been having this issue on and off for approximately 10 years. She comes to the emergency room for further evaluation. No initial twelve lead electrocardiogram was done in the emergency room. While on the [facility] floor, the patient was noted to be bradycardic. A twelve lead electrocardiogram was obtained at that time and reveals sinus bradycardia without any pauses or AV blocks. Cardiology has been consulted for further assessment. Significant past medical history includes hypertension, hyperlipidemia, sarcoidosis, and chronic back pain. Past Medical History Past medical history reviewed. No other significant than mentioned above. Past Surgical History Partial hysterectomy Left oophorectomy Family History: FH: cancer G8 MOTHER G8 FATHER Family History Family history reviewed. Social History Denies the use of tobacco, alcohol or illicit drugs. Allergies: Coded Allergies: NO KNOWN ALLERGIES (Unverified , 09/17/21) Home Meds Active Scripts Ergocalciferol (VITAMIN D 15764 UNIT) 50,000 [place], [address] UNIT PO QWEEKLY for 10 Days, #10 CAP Prov:RIA BOWMAN MD 08/12/24 Prednisone (Prednisone) 20 Mg Tab, 20 MG PO BID for 7 Days, #14 MG Prov:RIA BOWMAN MD 08/12/24 Reported Medications Ipratropium [place] Hfa (Atrovent Hfa) 17 Mcg Aer, 2 PUFF INH QID, #12.9 GRAMS 5 Refills 08/10/24 Fluticasone-Salmeterol (Wixela Inhub 100-50 Mcg/Dose) 1 Aer Aer, 1 AER IN, AER 08/10/24 Albuterol Sulfate (Albuterol Sulfate) 2 Mg Tab, 90 MCG PO Q6HP PRN for FOR COUGH, MG 08/10/24 Budesonide-Formoterol Fumarate (Breyna 160-4.5 Mcg/Act) 1 Aer Aer, 1 AER IN, AER 08/10/24 Oxybutynin Chloride (Oxybutynin Chloride) 5 Mg Tab, 5 MG PO DAILY, TAB 08/10/24 Hctz (Hydrochlorothiazide) 25 Mg Tab, 50 MG PO BID, TAB 08/10/24 Ibuprofen (Ibuprofen) 800 Mg Tab, 800 MG PO PRN, MG 08/10/24 Metoprolol Tartrate (Metoprolol Tartrate) 50 Mg Tab, 50 MG PO for 30 Days, MG 11/09/22 Discontinued Reported Medications Hydrocodone-Acetaminophen (Hydrocodone Bitartrate/AC 10-325 mg) 1 Tab Tab, 1 TAB PO QID, TAB 08/10/24 Doxycycline (Monohydrate) (Doxycycline) 100 Mg Cap, 100 MG PO BID, CAP 08/10/24 Home Meds Home medications reviewed. Current Medications Current Medications Medications (Trade) Dose Ordered Sig/Christie Route PRN Reason Start Time Stop Time Status Last Admin Budesonide (Pulmicort) 0.5 mg BID NEB 08/11/24 22:00 08/12/24 06:25 Review of Systems Constitutional: No symptom reported Ears, Nose, & Throat: No symptom reported Eyes: No symptom reported Neurological: No symptoms reported Pulmonary/Respiratory: No symptoms reported Cardiovascular: No symptom reported Gastrointestinal: No symptom reported Genitourinary: No symptom reported Musculoskeletal: Left ribcage pain Skin: No symptom reported Psychiatric: No symptom reported Endocrine: No symptom reported Hematologic/Lymphatic: No symptom reported Vital Signs Vital Signs Date Time Temp Pulse Resp B/P (MAP) Pulse Ox O2 Delivery O2 Flow Rate FiO2 08/12/24 12:41 98.1 48 17 133/75 (94) 97 98.1 08/12/24 12:05 Room Air 0.0 08/12/24 12:05 21 Physical Exam General Appearance: Cooperative. Well-developed. Well-nourished. No acute distress. Pulmonary/Respiratory: Clear, bilateral breaths sounds. Cardiovascular/Chest: Regular rate and rhythm. Peripheral Pulses: 2+ Radial (R). 2+ Radial (L). 2+ Pedal (R). 2+ Pedal (L) Abdominal Exam: Normal bowel sounds. Ankle Exam: Negative ankle edema Lower extremities: Negative lower extremity edema Neuro/Mental Status: A/OX4, coherent. Thoughts/Psych: Normal thought pattern. Appropriate mood and affect. Good judgment and insight. Appearance: No acute distress. Skin Exam: Normal inspection. Normal color. Warm and dry. Labs/Diagnostic Data Labs Test 08/12/24 11:06 08/10/24 08:13 08/10/24 07:00 Range/Units Sodium Level 144 136-145 mmol/L Potassium Level 3.0 L 3.5-5.1 mmol/L Chloride Level 106 98-107 mmol/L Carbon Dioxide Level 32 H 20-31 mmol/L Anion Gap 6 5-15 Blood Urea Nitrogen 12 9-23 mg/dL Creatinine 0.92 0.550-1.02 mg/dL Glomerular Filtration Rate Calc 74 >90 mL/min BUN/Creatinine Ratio 13.0 10.0-20.0 Serum Glucose 112 H 74-106 mg/dL Hemoglobin A1c 6.2 H <5.7 % A1C Calcium Level 9.6 8.7-10.4 mg/dL Magnesium Level 2.4 1.6-2.6 mg/dL White Blood Count 7.2 4.4-10.8 10^3/uL Red Blood Count 4.09 4.0-5.20 10^6/uL Hemoglobin 12.7 12.2-16.2 g/dL Hematocrit 38.2 36.0-46.0 % Mean Corpuscular Volume 93.6 80.0-100.0 fL Mean Corpuscular Hemoglobin 31.0 28.0-32.0 pg Mean Corpuscular Hemoglobin Concent 33.2 32.0-36.0 g/dL Red Cell Distribution Width 14.7 H 11.8-14.3 % Platelet Count 232 140-450 10^3/uL Mean Platelet Volume 9.2 6.9-10.8 fL Neutrophils (%) (Auto) 58.3 37.0-80.0 % Lymphocytes (%) (Auto) 32.7 10.0-50.0 % Monocytes (%) (Auto) 7.7 0.0-12.0 % Eosinophils (%) (Auto) 0.2 0.0-7.0 % Basophils (%) (Auto) 1.1 0.0-2.0 % Neutrophils # (Auto) 4.2 1.6-8.6 10 ^3/uL Lymphocytes # (Auto) 2.3 0.4-5.4 10 ^3/uL Monocytes # (Auto) 0.6 0-1.3 10 ^3/uL Eosinophils # (Auto) 0 0-0.8 10 ^3/uL Basophils # (Auto) 0.1 0-0.2 10 ^3/uL Nucleated Red Blood Cells 0.2 % Phosphorus Level 3.0 2.4-5.1 mg/dL Total Bilirubin 0.7 0.2-1.0 mg/dL Aspartate Amino Transferase (AST) 11 L 13-40 U/L Alanine Aminotransferase (ALT) 16 7-40 U/L Alkaline Phosphatase 57 46-116 U/L Total Protein 6.8 5.7-8.2 g/dL Albumin 4.3 3.2-4.8 g/dL Lipase 36 12-53 U/L Urine Color Light-yellow Yellow Urine Clarity Clear Clear Urine pH 6.0 5.0-9.0 Urine Specific [place] 1.015 1.001-1.035 Urine Protein Negative Negative Urine Ketones Negative Negative Urine Blood Negative Negative /uL Urine Nitrite Negative Negative Urine Bilirubin Negative Negative Urine Urobilinogen Normal Negative mg/dL Urine Leukocyte Esterase Negative Negative /uL Urine RBC None seen 0 - 4 /hpf Urine WBC 1 0 - 5 /hpf Urine Squamous Epithelial Cells Few <5 /hpf Urine Bacteria None seen None Seen /hpf Urine Glucose Normal Normal mg/dL Assessment Sinus bradycardia, likely medication induced Hypertension Hyperlipidemia Hypokalemia Sarcoidosis Chronic back pain Plan/Recommendation (Dr. Cuevas): We will proceed with obtaining a transthoracic echocardiogram to evaluate cardiac function. Twelve lead electrocardiogram reveals a sinus bradycardia without pauses or AV blocks. We will stop metoprolol at this time given that this may be the reason that the patient is experiencing bradycardia. We will upgrade the patient to telemetry for further monitoring. Notify cardiology team immediately for any ECG changes including pauses, AV blocks, or arrhythmias. Thank you for allowing us to care for this patient. Please call with any questions or concerns. Critical care time spent: 40 minutes This medical document was created using an electronic medical record system with voice recognition software and computerized dictation system. Although this document has been carefully reviewed, there might still be some phonetic and typographical errors. Occasional wrong-word or ``sound-alike substitutions may have occurred due to the inherent limitations of voice recognition software. These areas are purely typographical due to imperfections of the software programs and do not reflect any compromise in the patient's medical care. Please read the chart carefully and recognize, using context, where these substitutions have occurred. Plan discussed with: Patient Date of Service: Aug 12, 2024 Billing Provider: AJ DOBBINS Cardiology Common Codes: [id number] INP/OBS CARE (High) Cardiology Consultation Codes: [id number] CONSULT <45MIN AJ DOBBINS Aug 12, 2024 13:24
[2024-08-12] MEDS: POTASSIUM CHL 20 Meq TABLET PO ONE (13:36)
[2024-08-12] MEDS ORDERED: ERGO1CAP23 PO (14:37)
[2024-08-12] MEDS ORDERED: PRED20TA2 PO (14:37)
--- NOTE | 2024-08-12 14:39 | DVHDS2 ---
Discharge Summary Date of Admission Aug 10, 2024 at 11:39 Date of Discharge: Aug 12, 2024 Labs/Diagnostic Data: Laboratory Results Test 08/12/24 11:06 08/10/24 08:13 08/10/24 07:00 Sodium Level 144 mmol/L (136-145) Potassium Level 3.0 mmol/L (3.5-5.1) Chloride Level 106 mmol/L (98-107) Carbon Dioxide Level 32 mmol/L (20-31) Anion Gap 6 (5-15) Blood Urea Nitrogen 12 mg/dL (9-23) Creatinine 0.92 mg/dL (0.550-1.02) Glomerular Filtration Rate Calc 74 mL/min (>90) BUN/Creatinine Ratio 13.0 (10.0-20.0) Serum Glucose 112 mg/dL (74-106) Hemoglobin A1c 6.2 % A1C (<5.7) Calcium Level 9.6 mg/dL (8.7-10.4) Magnesium Level 2.4 mg/dL (1.6-2.6) Thyroid Stimulating Hormone (TSH) 0.99 uIU/mL (0.55-4.78) White Blood Count 7.2 10^3/uL (4.4-10.8) Red Blood Count 4.09 10^6/uL (4.0-5.20) Hemoglobin 12.7 g/dL (12.2-16.2) Hematocrit 38.2 % (36.0-46.0) Mean Corpuscular Volume 93.6 fL (80.0-100.0) Mean Corpuscular Hemoglobin 31.0 pg (28.0-32.0) Mean Corpuscular Hemoglobin Concent 33.2 g/dL (32.0-36.0) Red Cell Distribution Width 14.7 % (11.8-14.3) Platelet Count 232 10^3/uL (140-450) Mean Platelet Volume 9.2 fL (6.9-10.8) Neutrophils (%) (Auto) 58.3 % (37.0-80.0) Lymphocytes (%) (Auto) 32.7 % (10.0-50.0) Monocytes (%) (Auto) 7.7 % (0.0-12.0) Eosinophils (%) (Auto) 0.2 % (0.0-7.0) Basophils (%) (Auto) 1.1 % (0.0-2.0) Neutrophils # (Auto) 4.2 10 ^3/uL (1.6-8.6) Lymphocytes # (Auto) 2.3 10 ^3/uL (0.4-5.4) Monocytes # (Auto) 0.6 10 ^3/uL (0-1.3) Eosinophils # (Auto) 0 10 ^3/uL (0-0.8) Basophils # (Auto) 0.1 10 ^3/uL (0-0.2) Nucleated Red Blood Cells 0.2 % Phosphorus Level 3.0 mg/dL (2.4-5.1) Total Bilirubin 0.7 mg/dL (0.2-1.0) Aspartate Amino Transferase (AST) 11 U/L (13-40) Alanine Aminotransferase (ALT) 16 U/L (7-40) Alkaline Phosphatase 57 U/L (46-116) Total Protein 6.8 g/dL (5.7-8.2) Albumin 4.3 g/dL (3.2-4.8) Lipase 36 U/L (12-53) Urine Color Light-yellow (Yellow) Urine Clarity Clear (Clear) Urine pH 6.0 (5.0-9.0) Urine Specific [place] 1.015 (1.001-1.035) Urine Protein Negative (Negative) Urine Ketones Negative (Negative) Urine Blood Negative /uL (Negative) Urine Nitrite Negative (Negative) Urine Bilirubin Negative (Negative) Urine Urobilinogen Normal mg/dL (Negative) Urine Leukocyte Esterase Negative /uL (Negative) Urine RBC None seen /hpf (0 - 4) Urine WBC 1 /hpf (0 - 5) Urine Squamous Epithelial Cells Few /hpf (<5) Urine Bacteria None seen /hpf (None Seen) Urine Glucose Normal mg/dL (Normal) Other Laboratory Tests 08/12/24 11:06 08/10/24 08:13 Brief Hx & Hospital Course: A 54-year-old woman with PMHx of hypertension, sarcoidosis, and chronic back pain who presents to ED c/o left rib pain, which is ongoing for last 10 years but constant over the last 2 weeks without relief, prompting pt to seek medical care. Pain is worse with deep breathing, is a squeezing pain in the left rib area. Admits to cough. Denies SOB, chest pain or hemoptysis. Of note, she did see Dr. Stephenson this week and is on prednisone, although reports no relief of sx. Pt sees Pain Management for her chronic back pain. Chest CT scan showed mediastinal lymphadenopathy 2.9 cm, bilateral atelectasis. Patient was thus admitted for further care and pulmonary consultation is requested for evaluation and management d/t these findings. Patient was admitted for worsening shortness of breath. Patient was treated for sarcoidosis flare with steroids. Patient did have some episodes of bradycardia but was asymptomatic patient is on metoprolol at home we will continue to monitor outpatient. Patient can continue prednisone at home. We will see me in the office this week. Condition at Discharge: Stable Final Diagnosis/Problems List Sarcoidosis Flare Bronchospasm Uncontrolled HTN PreDiabetes Discharge Disposition: Home Discharge Instruct/Medications Diet: Consistent carbohydrate Activity: Light activity Follow Up/Referral: Dr. Queen in 1 week Medications: see [facility] Discharge Statement: "Patient was advised to return to the ER or call 911 if any headaches, dizziness, shortness of breath, chest pain, abdominal pain, bleeding, fevers, or worsening of medical condition. Patient was counseled about treatment plan, medications, possible side effects, patientverbalized understanding. All questions were answered to the best of my ability. This discharge took greater then 30 minutes in planning, reviewing documentation, counseling the patient, and discussing with other team members." ASSESSMENT ASSESSMENT Assessment Date of Service: Aug 12, 2024 Billing Provider: RIA QUEEN MD Common Visit Codes: 05892-HJK/OBS DISCH DAY >30min RIA QUEEN MD Aug 12, 2024 14:39
--- NOTE | 2024-08-12 22:32 | DVHPN2 ---
Progress Note - Dictate Date Seen: Aug 12, 2024 Medical Necessity Reason Pt with a Central, PICC or Fol: No Subjective Patient seen and examined at bedside. Breathing on room air Overnight events reviewed. vital signs Vital Sign Date Time Temp Pulse Resp B/P (MAP) Pulse Ox O2 Delivery O2 Flow Rate FiO2 08/12/24 17:00 98.6 78 16 110/62 (78) 96 98.6 08/12/24 12:05 Room Air 0.0 08/12/24 12:05 21 Total Intake and Output 08/11/24 08/11/24 08/12/24 15:00 23:00 07:00 Intake Total 650 ml 100 ml Balance 650 ml 100 ml objective Gen.: Patient lying in bed in no apparent distress. On room air Head: Normocephalic, atraumatic. Eyes: EOMI/PERRLA. Ears: Normal hearing. Normal anatomy. Neck/trachea: Trachea midline, supple. Nose: Normal external anatomy. Mouth: Moist mucous membranes. Chest: Decreased air entry bilaterally. No wheezing or rhonchi. Cardiovascular: Positive S1, positive S2. Regular rate and rhythm. Abdomen: Positive bowel sounds in all 4 quadrants. Soft, non-tender, non- distended. : Deferred. Rectal: Deferred. Skin: Warm, dry. Intact. Extremities: 2+ radial pulses bilaterally. No lower extremity edema. Neuro: Awake, alert, oriented x3. No gross motor or sensory deficits. Cranial nerves II through XII intact. Gait not assessed. laboratory and microbiology Laboratory Tests 08/12/24 11:06 08/10/24 08:13 Test 08/12/24 11:06 Range/Units Serum Glucose 112 H 74-106 mg/dL Assessment/Plan Impression: Cough Left rib pain Mediastinal lymphadenopathy Atelectasis Hypokalemia Intractable pain Acute hypoxic respiratory failure due to hypoventilation 2/2 rib pain Sarcoid exacerbation Events: Breathing on room air. No respiratory distress. IV steroids for sarcoid flareup Incentive spirometry Pain control Avoid oversedation Patient desaturated while sleeping - recommend outpatient referral to sleep specialist. Labs and imaging reviewed. Rest of plan as noted below. Plan: Supplemental oxygen PRN Titrate to keep O2 sats above 92%. . IV steroids due to sarcoid flare up Incentive spirometry due to atelectasis Pain control Avoid oversedation Monitor renal function. Monitor electrolytes. Supplement as necessary. Monitor ins and outs. GI prophylaxis - Protonix DVT prophylaxis. Prognosis: Poor given patient's multiple co-morbidities. Rest of plan per hospitalist and other consultants. Thank you, Aury Alfredo NP, for allowing me to participate in this patient's care. Further recommendations will depend on the patient's clinical course. Please do not hesitate to contact me if you have any questions or concerns. This medical document was created using an electronic medical record system with [employer] dictation system. Although these documentations are being carefully reviewed, there may still be some phonetic and typographical changes. The errors are purely typographical, due to imperfection on the software program, and do not reflect any compromise in the patient's medical care. Plan discussed with: Patient, Other (ANNETTE Ovalle) JESSE HONG MD Aug 12, 2024 22:32
== END 2024-08-12 18:00 | disposition home or self-care (01) | DRG 196 ==
LOC: ER 05:22 → OVERFLOW 11:39 → EAST 17:26 → TELE-E-ADS 08-12 13:46
PROVIDERS: ADMIT Nurse Practitioner Family; ATTEND Family Medicine
DX: D86.9 Sarcoidosis, unspecified (principal); J96.01 Acute respiratory failure with hypoxia; J98.11 Atelectasis; J20.8 Acute bronchitis due to other specified organisms; E87.6 Hypokalemia; I10 Essential (primary) hypertension; G89.29 Other chronic pain; E78.5 Hyperlipidemia, unspecified; R59.0 Localized enlarged lymph nodes; R73.03 Prediabetes; Z90.711 Acquired absence of uterus with remaining cervical stump; Z80.9 Family history of malignant neoplasm, unspecified; Z90.721 Acquired absence of ovaries, unilateral; R00.1 Bradycardia, unspecified
CPT/HCPCS: 36415; 71046; 71250; 80048; 80053; 81001; 83036; 83690; 83735; 84100; 84443; 85025; 94640; 96360; G0378; J1885; J2470

== ENCOUNTER → 2024-08-29 | Outpatient (CLI) | payer OTHER ==
[~2024-08-29] MED LIST changes: +ALBU2TAB11 PO; +BUDE1AER16 IN; -CHOLCAP10 PO; +ERGO1CAP23 PO; +FLUT1AER5 IN; -GABA-1250 PO; -HYDR-4902 PO; +HYDR25TA5 PO; +IBUP-1456 PO; +IPRIH INH; -METH-1182 PO; +OXYB5TAB14 PO
== END | disposition home or self-care (01) ==
LOC: LAB 12:42
PROVIDERS: ATTEND Obstetrics & Gynecology
DX: N39.0 Urinary tract infection, site not specified (principal)
CPT/HCPCS: 87086

== ENCOUNTER → 2024-08-30 | Outpatient (CLI) | payer OTHER ==
[2024-08-30 15:39] LABS: Chloride 102 mmol/L (98-107); Sodium 143 mmol/L (136-145)
[2024-08-30 15:40] LABS: Anion Gap 8 (5-15)
[2024-08-30 15:45] LABS: BUN/Creatinine Ratio 18.5 (10.0-20.0); Blood Urea Nitrogen 17 mg/dL (9-23); Glucose 96 mg/dL (74-106)
[2024-08-30 15:53] LABS: Calcium 11.1 mg/dL (8.7-10.4); Carbon Dioxide 33 mmol/L (20-31); Potassium 2.8 mmol/L (3.5-5.1)
== END | disposition home or self-care (01) ==
LOC: LAB 14:55
PROVIDERS: ATTEND Internal Medicine
DX: I10 Essential (primary) hypertension (principal)
CPT/HCPCS: 36415; 80048

== ENCOUNTER → 2024-09-06 | Outpatient (CLI) | payer OTHER ==
[2024-09-06 08:09] LABS: Basophils # (auto) 0 10 ^3/uL (0-0.2); Basophils % (auto) 0.4 % (0.0-2.0); Eosinophils # (auto) 0 10 ^3/uL (0-0.8); Eosinophils % (auto) 0.1 % (0.0-7.0); Hematocrit 37.8 % (36.0-46.0); Hemoglobin 12.9 g/dL (12.2-16.2); Lymphocytes # (auto) 1.2 10 ^3/uL (0.4-5.4); Mean Corpuscular Hemoglobin 31.9 pg (28.0-32.0); Mean Corpuscular Volume 93.7 fL (80.0-100.0); Monocytes # (auto) 0.3 10 ^3/uL (0-1.3); Monocytes % (auto) 4.5 % (0.0-12.0); Neutrophils # (auto) 4.9 10 ^3/uL (1.6-8.6); Platelet Count (auto) 259 10^3/uL (140-450); Red Blood Cells 4.04 10^6/uL (4.0-5.20); Red Cell Distribution Width 14.6 % (11.8-14.3); White Blood Cell 6.4 10^3/uL (4.4-10.8)
[2024-09-06 08:15] LABS: Alanine Aminotransferase 34 U/L (7-40); Alkaline Phosphatase 73 U/L (46-116); Anion Gap 7 (5-15); Aspartate Aminotransferase 24 U/L (13-40); BUN/Creatinine Ratio 12.5 (10.0-20.0); Bilirubin, Total 0.5 mg/dL (0.2-1.0); Blood Urea Nitrogen 11 mg/dL (9-23); Carbon Dioxide 29 mmol/L (20-31); Cholesterol 167 mg/dL (< 200); HDL Cholesterol 55 mg/dL (40-59); LDL Cholesterol 92 mg/dL (< 100); Potassium 3.7 mmol/L (3.5-5.1); Sodium 144 mmol/L (136-145); Total Protein 7.2 g/dL (5.7-8.2); Triglycerides 59 mg/dL (< 150)
[2024-09-06 08:21] LABS: Albumin 4.9 g/dL (3.2-4.8); Calcium 10.4 mg/dL (8.7-10.4); Chloride 108 mmol/L (98-107); Glucose 116 mg/dL (74-106)
== END | disposition home or self-care (01) ==
LOC: LAB 07:41
PROVIDERS: ATTEND Internal Medicine
DX: I10 Essential (primary) hypertension (principal); E87.6 Hypokalemia; E78.5 Hyperlipidemia, unspecified; R73.03 Prediabetes
CPT/HCPCS: 36415; 80053; 80061; 83036; 85025

== ENCOUNTER → 2025-04-03 | Outpatient (CLI) | payer OTHER ==
[2025-04-03 09:49] LABS: Hematocrit 41.7 % (36.0-46.0); Hemoglobin 14.1 g/dL (12.2-16.2); Mean Corpuscular Hemoglobin 31.0 pg (28.0-32.0); Mean Corpuscular Volume 91.9 fL (80.0-100.0); Nucleated Red Blood Cells % 0.1 %
[2025-04-03 10:21] LABS: Alanine Aminotransferase 25 U/L (7-40); Alkaline Phosphatase 64 U/L (46-116); Anion Gap 10 (5-15); BUN/Creatinine Ratio 12.0 (10.0-20.0); Blood Urea Nitrogen 12 mg/dL (9-23); Calcium 10.1 mg/dL (8.7-10.4); Carbon Dioxide 31 mmol/L (20-31); Chloride 103 mmol/L (98-107); Glucose 102 mg/dL (74-106); Potassium 3.8 mmol/L (3.5-5.1); Sodium 144 mmol/L (136-145); Total Protein 7.7 g/dL (5.7-8.2); Triglycerides 75 mg/dL (< 150)
[2025-04-03 10:22] LABS: Bilirubin, Total 0.8 mg/dL (0.2-1.0); Cholesterol 194 mg/dL (< 200)
[2025-04-03 10:24] LABS: Free T3 2.55 pg/mL (2.3-4.2)
[2025-04-03 10:25] LABS: Free T4 (Free Thyroxine) 1.23 ng/dL (0.89-1.76)
[2025-04-03 10:27] LABS: Albumin 5.2 g/dL (3.2-4.8); HDL Cholesterol 70 mg/dL (40-59)
== END | disposition home or self-care (01) ==
LOC: LAB 09:32
PROVIDERS: ATTEND Internal Medicine
DX: I10 Essential (primary) hypertension (principal); E78.5 Hyperlipidemia, unspecified; R73.03 Prediabetes; Z13.29 Encounter for screening for other suspected endocrine disorder
CPT/HCPCS: 36415; 80053; 80061; 83036; 84439; 84443; 84481; 85025

== ENCOUNTER 2025-05-25 08:44 | Outpatient (CLI) | payer OTHER ==
[2025-05-25] MEDS ORDERED: ALBUTEROL SULF 2.5 MG/0.5ML(0.5%) NEB SOLN ONE (08:59)
--- NOTE | 2025-05-29 11:59 | DVHNC2 ---
Procedure - Date of service: 05/25/2025 Pulmonary function test interpretation: No obstructive or restrictive ventilatory defect. No significant bronchodilator response. Total lung capacity is below normal limits, 73% of predicted (3.99 L). Mild reduction in diffusion capacity, not corrected for patient's hemoglobin; 67% of predicted. Procedure Codes: CPT 78679-70 CPT 93850-02 CPT 67464-68 Visit Coding Pulmonary Billing Provider: JESSE HONG MD Date of Service if different f: May 25, 2025 Common Visit Codes: PROCEDURE ONLY Pulmonary Procedure Codes: 98212-20- SPIROMETRY, 68828-55- LUNG VOLUME, 29681-72- DIFFUSION CAPACITY JESSE HONG MD May 29, 2025 11:59
== END 2025-05-25 17:00 | disposition home or self-care (01) ==
LOC: RT 08:44
PROVIDERS: ATTEND Internal Medicine Pulmonary Disease
DX: J45.50 Severe persistent asthma, uncomplicated (principal); D86.9 Sarcoidosis, unspecified
CPT/HCPCS: 94060; 94640; 94727; 94729